=== PATIENT | female | born 2000 | race Two or more races ===

== ENCOUNTER 2023-11-06 16:41 | Emergency (ER) | payer BC, SELFPAY ==
--- NOTE | ~2023-11-06 | XR_ITS ---
EXAMINATION: XR chest 2V DATE: 11/06/2023 18:14 INDICATION: Asthma TECHNIQUE: PA and lateral views of the chest were obtained. COMPARISON: None FINDINGS: The lungs are clear with no focal airspace opacities, pulmonary edema, pleural effusion or pneumothor ax. The cardiomediastinal silhouette is normal. Visualized bones and soft tissues are unremarkable. IMPRESSION: 1. Normal chest radiograph. Reviewed, dictated and finalized at location A. IMPRESSION: 1. Normal chest radiograph.
[2023-11-06 16:48] VITALS: BP 153/81; PULSE 94; RESP 20; TEMP 36; O2SAT 100
--- NOTE | 2023-11-06 16:54 | ECG_ITS ---
SEE SCANNED COPY FOR CONFIRMED REPORT MTDD
--- NOTE | 2023-11-06 16:54 | ED.ASTHMA ---
HPI - Asthma General Chief Complaint: Asthma <Verito Toro PA-C - Last Filed: 11/06/23 17:05> Stated Complaint: Chest tightness, Asthma exacerbation <Verito Toro PA-C - Last Filed: 11/06/23 17:05> Time Seen by Provider: 11/06/23 16:54 <JUSTA Harper Last Filed: 11/06/23 17:05> Focused HPI: Patient is a 22 y/o female who presents to the ED with c/o asthma flare-up. Patient reports since this morning, she has been having increased difficulty breathing, chest tightness, wheezing, she does report mild cough and congestion which she attributes to seasonal allergies. She has been using her inhaler at home with only mild temporary relief. Denies fevers, lower extremity pain or swelling, chest pain. Patient states it has been sometime since her last asthma flare. GENERAL: Well-appearing, obese with 39.7, and in no acute distress. HEAD: Normocephalic, atraumatic. CHEST: Clear to auscultation. Respirations nonlabored, no tachypnea. Tight coarse lung sounds bilaterally. Diffuse expiratory wheezing, worse on right. HEART: Regular rate and rhythm.? NEURO: ?Alert and oriented x3. Patient screened in triage and initial orders placed.? ?Additional care and disposition to be based upon?diagnostic testing and treatment. <Verito Toro PA-C - Last Filed: 11/06/23 17:05> Source: patient <Verito Toro PA-C - Last Filed: 11/06/23 17:05> Mode of arrival: ambulatory <JUSTA Harper Last Filed: 11/06/23 17:05> Limitations: no limitations <JUSTA Harper Last Filed: 11/06/23 17:05> History of Present Illness HPI Narrative: agree with HPI <Alex Alvarenga MD - Last Filed: 11/06/23 19:33> Related Data Allergies/Adverse Reactions: Allergies Allergy/AdvReac Type Severity Reaction Status Date / Time amoxicillin Allergy Unknown Verified 11/06/23 17:06 <Verito Toro PA-C - Last Filed: 11/06/23 17:05> Review of Systems Review of Systems: All systems reviewed & are unremarkable except as noted in HPI and below <Alex Alvarenga MD - Last Filed: 11/06/23 19:33> Constitutional: Constitutional: Reports no additional constitutional complaints <Alex Alvarenga MD - Last Filed: 11/06/23 19:33> Cardiovascular: Cardiovascular: Reports no additional cardiovascular complaints <Alex Alvarenga MD - Last Filed: 11/06/23 19:33> Respiratory: Respiratory: Reports cough, Reports dyspnea and Reports wheezing <Alex Alvarenga MD - Last Filed: 11/06/23 19:33> Gastrointestinal: Gastrointestinal: Reports no additional gastrointestinal complaints <Alex Alvarenga MD - Last Filed: 11/06/23 19:33> PMFSH Past Medical History Medical History: Medical History (Updated 11/06/23 @ 19:30 by Alex Alvarenga MD) Asthma <Verito Toro PA-C - Last Filed: 11/06/23 17:05> Surgical History Surgical History: Surgical History (Updated 11/06/23 @ 18:09 by Alex Alvarenga MD) No pertinent past surgical history <Verito Toro PA-C - Last Filed: 11/06/23 17:05> Exam Narrative: GENERAL: Well-appearing, morbidly obese, and in no acute distress. HEAD: Normocephalic, atraumatic. ENT: Mucous membranes moist. CHEST: mild expiratory wheezing. No respiratory distress. HEART: Regular rate and rhythm. Normal peripheral pulses. EXTREMITIES: Normal range of motion. No edema. SKIN: Warm, dry, no rash. NEURO: Alert and oriented x3. PSYCH: Normal mood and affect. <Alex Alvarenga MD - Last Filed: 11/06/23 19:33> Course Course Emergency Course: Breathing improved after nebulizer treatment. Discharge home with prednisone. Viral panel negative an x-ray normal. <Alex Alvarenga MD - Last Filed: 11/06/23 19:33> Vital Signs Vital signs: Vital Signs Temperature 96.8 F L 11/06/23 16:48 Pulse Rate 94 11/06/23 16:48 Respiratory Rate 20 11/06/23 16:4
[2023-11-06 17:06] VITALS: BP 164/89; PULSE 72; RESP 20; O2SAT 99
[2023-11-06] MEDS: methylPREDNISolone SOD SUCC 125 MG VIAL IM (17:07)
[2023-11-06] MEDS: LEVALBUTEROL NEB 1.25 MG/3 ML 2.5 MG INHALATION (17:08)
[2023-11-06] MEDS: IPRATROPIUM BR 0.02% INH SOLN 0.5 MG/2.5 ML VIAL 1.5 MG INHALATION (17:09)
[2023-11-06 17:55] LABS: Influenza A QL RT-PCR Negative (Negative); Influenza B QL RT-PCR Negative (Negative); RSV RNA, RT-PCR Negative (Negative); SARS-CoV-2 RNA PCR Negative (Negative)
[2023-11-06 18:02] VITALS: BP 169/93; PULSE 83; RESP 19; O2SAT 100
[2023-11-06 19:37] VITALS: PULSE 91; RESP 16; O2SAT 100
== END 2023-11-06 19:39 | disposition home or self-care (01) ==
PROVIDERS: Physician Assistant; Emergency Provider Emergency Medicine
DX: J45.901 Unspecified asthma with (acute) exacerbation (principal); Z20.822 Contact with and (suspected) exposure to COVID-19
CPT/HCPCS: 71046; 87637; 93005; 96372; 99283; J2919

== ENCOUNTER 2024-11-16 15:21 | Outpatient (CLI) | payer BC, SELFPAY ==
--- NOTE | ~2024-11-16 | US_ITS ---
EXAMINATION: US OB <=14 wk fetus w TV DATE: 11/16/2024 16:43 CDT INDICATION: Dating COMPARISON: None TECHNIQUE: Real-time transabdominal obstetric ultrasound. FINDINGS: 1 para 0 Last menstrual period is given as 08/26/2024. Gestational age by last menstrual period is 11 weeks and 5 days. Estimated date of delivery by last menstrual period is 06/02/2025 The uterus measures 10.4 x 5.2 x 7.2 cm. A gestational sac is identified within the uterus. A pole is identified, with a crown-rump length that measures 2.26 cm, corresponding to an appro ximate gestational age of 9 weeks and 0 days. cardiac activity is identified at a rate of 182 bpm. The right ovary 3.5 x 1.6 x 1.8 cm. Despite prolonged interrogation, the left ovary was not visualized. Estimated date of delivery by ultrasound is 06/21/2025 IMPRESSION: Single intrauterine gestation with an approximate gestational age of 9 weeks and 0 days, with c ardiac activity identified. Reviewed, dictated and finalized at location A. IMPRESSION: Single intrauterine gestation with an approximate gestational age of 9 weeks an d 0 days, with cardiac activity identified.
--- OUTSIDE RECORDS SUMMARY | 2024-11-16 15:27 | XMS_ITS | Clinical Summary ---
Author Organization [facility] [place] [address] [place] Address [address] [place] [id number] Care Team Providers Care Epic Director Name Role Phone Cassandra Velázquez NP Primary Care Provider [phone] Allergies Active Allergy Reactions Criticality Noted Date Comments Amoxicillin Hives,Itching,Rash,S hortness of breath High 03/07/2011 Shellfish Derived Hives,Itching,Rash,S hortness of breath,Swelling,Wheezing High 03/19/2022 Medications albuterol HFA (PROVENTIL HFA,VENTOLIN HFA,PROAIR HFA) 90 mcg/actuation inhaler Inhale 2 puffs every 6 (six) hours as needed for wheezing 1 each 3 4 Active EPINEPHrine 0.3 mg/0.3 mL auto-injection syringeIndicat ions:Anaphylax is Inject 0.3 mL (0.3 mg total) into the muscle as instructed daily as needed for anaphylaxis 1 each 4 Active dextroamphetam ine-amphetamin e XR (ADDERALL XR) 20 mg 24 hr capsule Take 1 capsule (20 mg total) by mouth every morning 30 capsule 5 Active dextroamphetam ine-amphetamin e XR (ADDERALL XR) 20 mg 24 hr capsule Take 1 capsule (20 mg total) by mouth every morning 30 capsule 5 10/28/19 25 Discontin ued(Reord er) Active Problems Problem Noted Date Diagnosed Date Class 3 severe obesity due t o excess calories with serious comorbidity and body mass index (BMI) of 40.0 to 44.9 in adult 07/14/2024 Assessment & Plan (07/14/2024 10:37 AM HOME HEALTH NURSE LICENSED PRACTICAL): BMI Follow-up includes: education provided. Annual physical exam 06/16/2024 Assessment & Plan (06/16/2024 3:16 PM HOME HEALTH NURSE LICENSED PRACTICAL): -Recommended: Healthy diet. Avoiding junk food/fast food. -30 minutes of exercise most days of the week. Increase to 45 minutes for weight loss. Health Maintenance reviewed - reviewed vaccines today. I recommended the meningococcal HPV and Tdap.. -Influenza vaccine every year Recommend: - Topic Date Due Pneumococcal vaccine <65 (1 of 2 - PCV) Never done Varicella Vaccines (2 of 2 - 2-dose childhood series) 06/12/2008 DTaP/Tdap/Td Vaccine (4 - Tdap) 2012 HPV Vaccines (1 - 3-dose series) Never done -F/u in 1 year for Annual PE or sooner if needed Major depression 05/19/2024 Assessment & Plan (06/16/2024 3:15 PM HOME HEALTH NURSE LICENSED PRACTICAL): Improved. Does not feel like she needs anything further for depression. Feels like she is doing well enough with the Adderall XR. We will continue to monitor. Follow-up 6 months Assessment & Plan (05/19/2024 2:31 PM HOME HEALTH NURSE LICENSED PRACTICAL): Positive PHQ. We are going to start by retreating the ADHD. I am going to have her follow-up in 1 month to rediscuss the depression anxiety and daily marijuana use. Shellfish allergy 05/19/2024 Assessment & Plan (05/19/2024 2:32 PM HOME HEALTH NURSE LICENSED PRACTICAL): Anaphylactic shellfish allergy. Prescription for epinephrine pen Asthma 11/11/2023 Assessment & Plan (05/19/2024 2:32 PM HOME HEALTH NURSE LICENSED PRACTICAL): Seasonal. Unsure how well controlled this is. She is using her albuterol inhaler periodically. 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 Continue Adderall XR 20 mg once daily. Call for refills. May follow up in 6 months Assessment & Plan (05/19/2024 2:30 PM HOME HEALTH NURSE LICENSED PRACTICAL): Previously diagnosed. Will restart Adderall XR 20 mg once daily. Will have her follow-up in 1 month for recheck Developmental disability 08/10/2009 Immunizations Immunization Administration Dates Next Due DTaP 01/15/2006,06/17/2002,02/25/2002 Hep A, Pediatric 12/17/2011 Hep B, Adolescent or Pediatric 09/14/2002 Hib (PRP-T) 06/17/2002 IPV 01/15/2006,02/25/2002 Influenza, Split 03/20/2008,06/24/2005, 4 MMR 01/15/2006 Pfizer SARS-CoV-2 Monovalent Vaccination (12+ Yrs) PRIETO-READY TO USE 10/06/2021 Varicella 03/20/2008 Surgical History Surgery Date Site/Laterality Comments WISDOM TOOTH EXTRACTION TYMPANOSTOMY TUBE PLACEMENT Medical History Medical History Date Comments ADHD (attention deficit hyperactivity disorder) Family History Medical History Relation Name Comments Thyroid disease Mother Relation Name Status Comments Mother Alive Social History Tobacco Use Types Packs/Day Years Used Date Smoking Tobacco: Every Day Vaping Started: 2020 AUDIT-C Answer Date Recorded Q1: How often do you have a drink containing alc ohol? 2-4 times a month 05/19/2024 Q2: How many drinks containi ng alcohol do you have on a typical day when you are drinking? 1 or 2 05/19/2024 Q3: How often do you have si x or more drinks on one occasion? Never 05/19/2024 PHQ-2 Answer Date Recorded PHQ-2 Total Score (If total score is 3 or more points, staff should administer the PHQ-9) 1 06/16/2024 PHQ-9 Answer Date Recorded PHQ-9 Total Score 3 06/16/2024 Comments Unknown Sex and Gender Information Value Date Recorded Sex Assigned at Not on file Legal Sex Female 11:24 PM HOME HEALTH NURSE LICENSED PRACTICAL Gender Identity Not on file Sexual Orientation Not on file Obstetrics History Last Filed Vital Signs Vital Sign Reading Time Taken Comments Blood Pressure 136/86 06/16/2024 2:33 PM HOME HEALTH NURSE LICENSED PRACTICAL Pulse 80 06/16/2024 2:33 PM HOME HEALTH NURSE LICENSED PRACTICAL Temperature 36.8 C (98.2 F) 06/16/2024 2:33 PM HOME HEALTH NURSE LICENSED PRACTICAL Respiratory Rate 18 06/16/2024 2:33 PM HOME HEALTH NURSE LICENSED PRACTICAL Oxygen Saturation 99% 06/16/2024 2:33 PM HOME HEALTH NURSE LICENSED PRACTICAL Inhaled Oxygen Concentration - - Weight 141.3 kg (311 lb 6.4 oz) 06/16/2024 2:33 PM HOME HEALTH NURSE LICENSED PRACTICAL Height 177.8 cm (5' 10 ) 06/16/2024 2:33 PM HOME HEALTH NURSE LICENSED PRACTICAL Body Mass Index 44.68 06/16/2024 2:33 PM HOME HEALTH NURSE LICENSED PRACTICAL Plan of Treatment Health Maintenance Due Date Last Done Comments Cervical Cancer Screening 2001 Hepatitis C Screening 2001 Varicella Vaccines (2 of 2 - 2-dose childhood series) 06/12/2008 03/20/2008 DTaP/Tdap/Td Vaccine (4 - Tdap) 2012 01/15/2006, 06/17/2002, 02/25/2002 HPV Vaccines (1 - 3-dose series) 2016 Meningococcal B Vaccine (1 o f 2 - Standard) 2017 Pneumococcal vaccine <65 (1 of 2 - PCV) 2020 Covid-19 Vaccine (2 - season) 02/28/202403/2022 Influenza Vaccine (Season Ended) 2025 03/20/2008, 06/24/2005, 05/30/2004 Depression Screening 06/16/2025 06/16/2024, 05/19/2024, 05/19/2024 Regular Well Visit/Exam 18-64 06/16/2025 06/16/2024 Hepatitis B Screening Completed 09/14/2002 Insurance [facility] Care Teams Epic Director Relationship Specialty Start Date End Date Cassandra Velázquez NP PCP - General Family Medicine 05/19/24
--- OUTSIDE RECORDS SUMMARY | 2024-11-16 15:27 | XMS_ITS | Encounter Summary ---
Author Organization [facility] Address [address] [place] [address] Care Team Providers Care Dairy Inspector Name Role Phone Unavailable Primary Care Provider Unavailabl e Prior Encounters Date Type Department Care Team Description 08/04/2024 11:00 AM FACILITIES OFFICER Office Visit [facility] [address] [place] [address] Neida Zhang, Junito 06/03/2024 12:45 PM FACILITIES OFFICER Office Visit [facility] [address] [place] [address] Arlen Sanchez DDS Unsatisfactory mu-ism of tooth, unspecified (Primary Dx); Encounter for dental examination and cleaning without abnormal findings 11/11/2023 9:00 AM CDT Office Visit [facility] [address] [place] [address] Radha Jones DDS 11/05/2023 Orders Only [facility] [address] [place] [address] Molly Bentley DMD 10/14/2023 1:00 PM CDT Office Visit [facility] [address] [place] [address] Radha Jones DDS 08/13/2023 2:15 PM FACILITIES OFFICER Office Visit [facility] [address] [place] [address] Molly Bentley DMD Encounter for dental examination and cleaning without abnormal findings (Primary Dx) 02/03/2023 Travel 02/03/2023 2:00 PM CDT Office Visit [facility] [address] [place] [address] Molly Bentley, DMD 10/08/2022 Travel 10/08/2022 2:00 PM CDT Office Visit [facility] [address] [place] [address] Molly Bentley, DMD 09/03/2022 2:45 PM FACILITIES OFFICER Office Visit [facility] [address] [place] [address] Molly Bentley, DMD 08/05/2022 2:30 PM FACILITIES OFFICER Office Visit [facility] [address] [place] [address] Molly Bentley, DMD 07/08/2022 3:15 PM FACILITIES OFFICER Office Visit [facility] [address] [place] [address] Molly Bentley, DMD 04/28/2022 1:15 PM CDT Office Visit [facility] [address] [place] [address] Molly Bentley, DMD 04/09/2022 10:00 AM CDT Office Visit [facility] [address] [place] [address] Cj Monzon DDS 03/19/2022 10:00 AM CDT Office Visit [facility] [address] [place] [address] Molly Bentley, DMD Last Filed Vital Signs Vital Sign Reading Time Taken Comments Blood Pressure 147/77 11/11/2023 9:38 AM CDT Pulse 72 11/11/2023 9:38 AM CDT Temperature - - Respiratory Rate - - Oxygen Saturation - - Inhaled Oxygen Concentration - - Weight 129 kg (285 lb) 11/11/2023 9:38 AM CDT Height 177.8 cm (5' 10 ) 11/11/2023 9:38 AM CDT Body Mass Index 40.89 11/11/2023 9:38 AM CDT Plan of Treatment Upcoming Encounters Date Type Department Care Team (Late st Contact Info) Description 02/02/2025 1:15 PM CDT Office Visit [facility] [address] [address] [place] [address] [address] Procedures Procedure Name Priority Date/Time Associated Diagnosis Comments ORAL HYGIENE INSTRUCTIONS Routine 2024 11:00 AM FACILITIES OFFICER TOPICAL APPLICATION OF FLUORIDE VARNISH Routine 08/04/2024 11:00 AM FACILITIES OFFICER ANNE-MARIE DECON Routine 08/04/2024 11:00 AM FACILITIES OFFICER SCALING IN PRESENCE OF GENERALIZED MODERATE OR SEVERE GINGIVAL INFLAMMATION Routine 08/04/2024 11:00 AM FACILITIES OFFICER LR ANTIBACT IRR/QUAD Routine 08/04/2024 11:00 AM FACILITIES OFFICER LL ANTIBACT IRR/QUAD Routine 08/04/2024 11:00 AM FACILITIES OFFICER UL ANTIBACT IRR/QUAD Routine 08/04/2024 11:00 AM FACILITIES OFFICER UR ANTIBACT IRR/QUAD Routine 08/04/2024 11:00 AM FACILITIES OFFICER BITEWINGS - FOUR RADIOGRAPHIC IMAGES Routine 06/03/2024 12:45 PM FACILITIES OFFICER PERIODIC ORAL EVALUATION - ESTABLISHED PATIENT Routine 06/03/2024 12:45 PM FACILITIES OFFICER Encounter for dental examination and cleaning without abnormal findings THERAPEUTIC PARENTERAL DRUGS, TWO OR MORE ADMINISTRATIONS, DIFFERENT MEDICATIONS Routine 11/11/2023 9:00 AM CDT DEEP SEDATION/GENERAL ANESTHESIA EACH SUBSEQUENT 15 MINUTE INCREMENT Routine 11/11/2023 9:00 AM CDT DEEP SEDATION/GENERAL ANESTHESIA EACH SUBSEQUENT 15 MINUTE INCREMENT Routine 11/11/2023 9:00 AM CDT DEEP SEDATION/GENERAL ANESTHESIA EACH SUBSEQUENT 15 MINUTE INCREMENT Routine 11/11/2023 9:00 AM CDT DEEP SEDATION/GENERAL ANESTHESIA FIRST 15 MINUTES Routine 11/11/2023 9:00 AM CDT 17 REMOVAL OF IMPACTED TOOTH - COMPLETELY BONY Routine 11/11/2023 9:00 AM CDT 16 REMOVAL OF IMPACTED TOOTH - COMPLETELY BONY Routine 11/11/2023 9:00 AM CDT 1 EXTRACTION, ERUPTED TOOTH REQUIRING REMOVAL OF BONE AND/OR SECTIONING OF TOOTH Routine 11/11/2023 9:00 AM CDT 32 REMOVAL OF IMPACTED TOOTH - COMPLETELY BONY Routine 11/11/2023 9:00 AM CDT 32 PLACEMENT OF INTRA-SOCKET BIOLOGICAL DRESSING TO AID IN HEMOSTASIS OR CLOT STABILIZATION, PER SITE Routine 11/11/2023 9:00 AM CDT 17 PLACEMENT OF INTRA-SOCKET BIOLOGICAL DRESSING TO AID IN HEMOSTASIS OR CLOT STABILIZATION, PER SITE Routine 11/11/2023 9:00 AM CDT 16 PLACEMENT OF INTRA-SOCKET BIOLOGICAL DRESSING TO AID IN HEMOSTASIS OR CLOT STABILIZATION, PER SITE Routine 11/11/2023 9:00 AM CDT 1 PLACEMENT OF INTRA-SOCKET BIOLOGICAL DRESSING TO AID IN HEMOSTASIS OR CLOT STABILIZATION, PER SITE Routine 11/11/2023 9:00 AM CDT ORAL SURG CONSULT Routine 10/14/2023 1:0 0 PM CDT PROPHYLAXIS - ADULT Routine 08/13/2023 2 :15 PM FACILITIES OFFICER Encounter for dental examination and cleaning without abnormal findings PERIODIC ORAL EVALUATION - ESTABLISHED PATIENT Routine 08/13/2023 2:15 PM FACILITIES OFFICER Encounter for dental examination and cleaning without abnormal findings BITEWINGS - FOUR RADIOGRAPHIC IMAGES Routine 08/13/2023 2:15 PM FACILITIES OFFICER PROPHYLAXIS - ADULT Routine 02/03/2023 2 :00 PM CDT BITEWINGS - FOUR RADIOGRAPHIC IMAGES Routine 02/03/2023 2:00 PM CDT SINGLE X-RAY Routine 02/03/2023 2:00 PM CDT PERIODIC ORAL EVALUATION - ESTABLISHED PATIENT Routine 02/03/2023 2:00 PM CDT 12 DO RESIN-BASED COMPOSITE - TWO SURFACES, POSTERIOR Routine 10/08/2022 2:00 PM CDT 13 MOD RESIN-BASED COMPOSITE - THREE SURFACES, POSTERIOR Routine 10/08/2022 2:00 PM CDT 4 MOD RESIN-BASED COMPOSITE - THREE SURFACES, POSTERIOR Routine 10/08/2022 2:00 PM CDT 15 O RESIN-BASED COMPOSITE - ONE SURFACE, POSTERIOR Routine 10/08/2022 2:00 PM CDT 31 O RESIN-BASED COMPOSITE - ONE SURFACE, POSTERIOR Routine 09/03/2022 2:45 PM FACILITIES OFFICER 29 DO RESIN-BASED COMPOSITE - TWO SURFACES, POSTERIOR Routine 09/03/2022 2:45 PM FACILITIES OFFICER 20 DO RESIN-BASED COMPOSITE - TWO SURFACES, POSTERIOR Routine 09/03/2022 2:45 PM FACILITIES OFFICER 18 MO RESIN-BASED COMPOSITE - TWO SURFACES, POSTERIOR Routine 09/03/2022 2:45 PM FACILITIES OFFICER 30 MOD RESIN-BASED COMPOSITE - THREE SURFACES, POSTERIOR Routine 09/03/2022 2:45 PM FACILITIES OFFICER ORAL HYGIENE INSTRUCTIONS Routine 2022 2:30 PM FACILITIES OFFICER PROPHYLAXIS - ADULT Routine 08/05/2022 2 :30 PM FACILITIES OFFICER INTRAORAL PHOTO Routine 08/05/2022 2:30 PM FACILITIES OFFICER INTRAORAL PHOTO Routine 08/05/2022 2:30 PM FACILITIES OFFICER INTRAORAL PHOTO Routine 08/05/2022 2:30 PM FACILITIES OFFICER INTRAORAL PHOTO Routine 08/05/2022 2:30 PM FACILITIES OFFICER PANORAMIC RADIOGRAPHIC IMAGE Routine 08/05/2022 2:30 PM FACILITIES OFFICER INTRAORAL - COMPREHENSIVE SERIES OF RADIOGRAPHIC IMAGES Routine 08/05/2022 2:30 PM FACILITIES OFFICER COMPREHENSIVE ORAL EVALUATION - NEW OR ESTABLISHED PATIENT Routine 08/05/2022 2:30 PM FACILITIES OFFICER LIMITED ORAL EVALUATION - PROBLEM FOCUSED Routine 07/08/2022 3:15 PM FACILITIES OFFICER SINGLE X-RAY Routine 07/08/2022 3:15 PM FACILITIES OFFICER 19 CEMENT CROWN Routine 04/28/2022 1:15 PM CDT 19 CEREC CROWN POST Routine 04/28/2022 1 :15 PM CDT NC X-RAY Routine 04/28/2022 1:15 PM CDT 19 TREATMENT OF ROOT CANAL OBSTRUCTION; NON-SURGICAL ACCESS Routine 04/09/2022 10:00 AM CDT NC X-RAY Routine 04/09/2022 10:00 AM CDT 19 CORE BUILDUP, INCLUDING ANY PINS WHEN REQUIRED Routine 04/09/2022 10:00 AM CDT 19 PULP VITALITY TESTS Routine 10:00 AM CDT [facility] CONSULT Routine 04/09/2022 1 0:00 AM CDT 19 ENDODONTIC THERAPY, MOLAR TOOTH (EXCLUDING FINAL NONDENOMINATIONAL) Routine 04/09/2022 10:00 AM CDT PANORAMIC RADIOGRAPHIC IMAGE Routine 03/19/2022 10:00 AM CDT BITEWING - SINGLE RADIOGRAPHIC IMAGE Routine 03/19/2022 10:00 AM CDT ADDITIONAL X-RAY Routine 03/19/2022 10:0 0 AM CDT SINGLE X-RAY Routine 03/19/2022 10:00 AM CDT LIMITED ORAL EVALUATION - PROBLEM FOCUSED Routine 03/19/2022 10:00 AM CDT Visit Diagnoses Diagnosis Start Date Encounter for dental examination and cleaning without abnormal findings 08/13/2023 Unsatisfactory mu-ism of tooth, unspecified 06/03/2024 Encounter for dental examination and cleaning without abnormal findings 06/03/2024 Insurance [facility]
--- OUTSIDE RECORDS SUMMARY | 2024-11-16 15:27 | XMS_ITS | Clinical Summary ---
Author Organization [facility] Address [address] [place] [address] Care Team Providers Care Interactive Project Manager Name Role Phone Willie Baldwin Primary Care Provider Ricky perales Source Comments [facility],non-owned Affiliates and Associated Physician Practices is amultiple site organization consisting of ambulatory clinics and hospital sitesin [place], [place], [place] and [place]. This disclosure is being madepursuant to the Care Everywhere program and may not contain all information available regarding this patient. Last updated 18.[facility] Allergies Active Allergy Reactions Criticality Noted Date Comments Amoxicillin 03/07/2011 Medications * Be aware that medications may not be up to date on this document. Alwaysverify current medications with the patient. sertraline (ZOLOFT) 50 MG tablet Take 50 mg by mouth at bedtime. Active fluticasone diskus (FLOVENT DISKUS) 100 MCG/BLIST inhaler Inhale 1 Puff by mouth 2 times daily. Rinse mouth after use. Active albuterol (PROVENTIL; VENTOLIN) 90 MCG/ACT inhaler Inhale 2 Puffs by mouth every 6 hours as needed. Active EPINEPHrine (EPIPEN 2-DEBRA) 0.3 MG/0.3ML auto-injector Inject 0.3 mL into muscle once as needed for Anaphalaxysis for 1 dose. 1 Package 2 1 Active methylphenidat e 24hr (RITALIN LA) 20 MG capsule Take 20 mg by mouth every morning. Active methylphenidat e (RITALIN) 10 MG tablet Take 10 mg by mouth Every morning and lunchtime. Active albuterol HFA (PROVENTIL;BINTA TOLIN;PROAIR) 108 (90 BASE) MCG/ACT inhaler Inhale 4 Puffs by mouth every 6 hours as needed. 1 Inhaler 5 4 Active ibuprofen (MOTRIN) 800 MG tablet Take 1 Tab by mouth every 6 hours as needed for Pain 30 Tab 0 6 Active Active Problems Problem Noted Date Diagnosed Date Injury, other and unspecified, knee, leg, ankle, and foot 10/18/2011 Social History Tobacco Use Types Packs/Day Years Used Date Smoking Tobacco: Never Smokeless Tobacco: Never Alcohol Use Standard Drinks/Week Comments No 0 (1 standard drink = 0.6 oz pur e alcohol) Comments Unknown Sex and Gender Information Value Date Recorded Sex Assigned at Not on file Legal Sex Female 5:26 AM VIBRATOR EQUIPMENT TESTER Gender Identity Not on file Sexual Orientation Not on file Last Filed Vital Signs Vital Sign Reading Time Taken Comments Blood Pressure 102/80 03/25/2016 7:43 PM CDT Pulse 80 03/25/2016 7:43 PM CDT Temperature 36.6 C (97.8 F) 03/25/2016 7:43 PM CDT Respiratory Rate 16 03/25/2016 7:43 PM CDT Oxygen Saturation 98% 02/28/2014 12: 20 AM CDT Inhaled Oxygen Concentration - - Weight 100.9 kg (222 lb 7.1 oz) 03/25/2016 7:43 PM CDT Height 168.8 cm (5' 6.44 ) 01/30/2016 1 0:00 AM CDT Body Mass Index - - Plan of Treatment Health Maintenance Due Date Last Done Comments HIV SCREENING 2016 HPV VACCINE (1 - 3-dose series) 2016 CHLAMYDIA/GONORRHEA SCREENING 2017 MENINGOCOCCAL (Group B) VACC INE SHARED DECISION-MAKING (1 of 2 - Standard) 2017 HEPATITIS C SCREENING 12/05/2019 DTAP/TDAP/TD VACCINES (1 - Tdap) 2020 HEPATITIS B VACCINE (1 of 3 - 19+ 3-dose series) 2020 COVID-19 VACCINE (1 - 2023-2 5 season) 2024 DEPRESSION SCREENING 06/29/2024 INFLUENZA VACCINE (Season Ended) 2025 ZOSTER VACCINE (1 of 2) 12/10/2051 HIB VACCINE Aged Out No longer eligi ble based on patient's age to complete this topic MENINGOCOCCAL GROUPS A/C/Y/W VACCINE Aged Out No longer eligible b ased on patient's age to complete this topic PNEUMOCOCCAL VACCINE Aged Out No long er eligible based on patient's age to complete this topic Insurance [employer] Care Teams Interactive Project Manager Relationship Specialty Start Date End Date Willie Baldwin PCP - General Pediatrics 02/27/14
--- OUTSIDE RECORDS SUMMARY | 2024-11-16 15:27 | XMS_ITS | Patient Health Record ---
Author Organization [facility] Address [address] [place] [address] Care Team Providers Care Underground Supervisor Name Role Phone Cely Diaz Primary Care Provider [phone] Allergies Allergen (clinical drug ingredient) Drug/Non Drug Allergy documented on EMR Reaction Allergy Type Onset Date Status shellfish and peanut s (uncoded) Unknown Allergy Active amoxicillin Amoxicillin Unknown Drug Allergy Act melody Reason For Referral No Information Medications Medication SIG (Take, Route, Frequency, Duration) Notes Start Date End Date Status Zoloft 50 MG 1 tablet Orally half tab for one week then increase to full tab for 30 days Active Social History Tobacco Use: Social History Observation Description Date Details (start date - stop date) Never Smoker NA - NA Dont use, Tobacco Use/Smoking Question Answer Notes Are you a nonsmoker Problems Problem Type SNOMED Code ICD Code Onset Dates Problem Status W/U Status Risk Notes Problem 603538161 Obesity (E66.9) Active confirmed Problem [id number] Major depression (F32.9) Active confirmed Plan Of Treatment No Information Insurance Providers Payer Name Payer Address Payer Phone Subscriber Number Group Number Insured Name Patient Relationship to Insured Coverage Start Date Coverage End Date [address] PLAN [facility] [address] [address] [place] [address] [id number] Sarah Solitario Self - patient is the insured 6 Medical (General) History Medical History History ICD Code ADHD (attention deficit hyperactivity di sorder)
--- OUTSIDE RECORDS SUMMARY | 2024-11-16 15:27 | XMS_ITS | Clinical Summary ---
Author Organization [facility] Address [address] [place] [address] Care Team Providers Care Dye Stand Loader Name Role Phone Unavailable Primary Care Provider Unavailabl e Allergies Active Allergy Reactions Criticality Noted Date Comments Amoxicillin Hives,Itching,Rash,S hortness of breath High 03/19/2022 Shellfish Derived Hives,Itching,Rash,S hortness of breath,Swelling,Wheezing High 03/19/2022 Medications albuterol HFA (PROVENTIL HFA;VENTOLIN HFA) 90 mcg/actuation inhaler Inhale 2 puffs every 6 (six) hours if needed. Active ibuprofen (ADVIL,MOTRIN) 600 mg tablet Take 1 tablet (600 mg total) by mouth every 6 (six) hours if needed for mild pain or moderate pain. 20 tablet Active chlorhexidine (PERIDEX) 0.12 % solution Use 15 mL in the mouth or throat in the morning and 15 mL in the evening. Swish and spit with 15 mL twice daily after brushing (do not use for more than two consecutive weeks). 473 mL 4 Active Active Problems Problem Noted Date Diagnosed Date Asthma 11/11/2023 Social History Tobacco Use Types Packs/Day Years Used Date Smoking Tobacco: Never Assessed Comments Unknown Sex and Gender Information Value Date Recorded Sex Assigned at Not on file Legal Sex Female 6:00 AM PDT Gender Identity Not on file Sexual Orientation [...] Description 02/02/2025 1:15 PM CDT Office Visit [facility] [address] [place] [address] Arlen Sanchez, DDS [address] [place] [address] Health Maintenance Due Date Last Done Comments Meningococcal B Vaccine (1 o f 2 - Standard) 2017 Dental Prophylaxis 02/12/2024 08/13/2023, 0 02/03/2023, 08/05/2022 Dental Oral Exam 12/03/2024 06/03/2024, , 02/03/2023, Additional history exists Dental X-Ray: Bitewings 12/03/2024 06/03/2024 Dental X-Ray: Full Mouth 08/07/2025 08/06/2022, 02/0 12/2022 Dental X-Ray: Panoramic 10/15/2026 10/15/19 24, 08/05/2022, 03/19/2022 Procedures Procedure Name Priority Date/Time Associated Diagnosis Comments PERIODIC ORAL EVALUATION - ESTABLISHED PATIENT Routine 06/03/2024 12:45 PM NUMERICAL CONTROL ROUTER OPERATOR Encounter for dental examination and cleaning without abnormal findings PROPHYLAXIS - ADULT Routine 08/13/2023 2 :15 PM NUMERICAL CONTROL ROUTER OPERATOR Encounter for dental examination and cleaning without abnormal findings PANORAMIC RADIOGRAPHIC IMAGE Routine 08/05/2022 2:30 PM NUMERICAL CONTROL ROUTER OPERATOR INTRAORAL - COMPREHENSIVE SERIES OF RADIOGRAPHIC IMAGES Routine 08/05/2022 2:30 PM NUMERICAL CONTROL ROUTER OPERATOR from Last 3 Months or Most Recently Relevant to Health Maintenance Insurance [facility] PPO [facility] COMMERCIAL
--- OUTSIDE RECORDS SUMMARY | 2024-11-16 15:27 | XMS_ITS | Referral Summary ---
Author Organization [facility] [address] Address [address] [place] [id number] Care Team Providers Care Bottle Packer Name Role Phone Cassandra Velázquez NP Primary Care Provider [phone] Allergies Active Allergy Reactions Criticality Noted Date [...] 07/14/2024 Assessment & Plan (07/14/2024 10:37 AM PADDER): BMI Follow-up includes: education provided. Annual physical exam 06/16/2024 Assessment & Plan (06/16/2024 3:16 PM PADDER): -Recommended: Healthy diet. Avoiding junk food/fast food. [...] 05/19/2024 Assessment & Plan (06/16/2024 3:15 PM PADDER): Improved. Does not feel like she needs anything further for depression. Feels like she is doing well enough with the Adderall XR. We will continue to monitor. Follow-up 6 months Assessment & Plan (05/19/2024 2:31 PM PADDER): Positive PHQ. We are going to start by retreating the ADHD. I am going to have her follow-up in 1 month to rediscuss the depression anxiety and daily marijuana use. Shellfish allergy 05/19/2024 Assessment & Plan (05/19/2024 2:32 PM PADDER): Anaphylactic shellfish allergy. Prescription for epinephrine pen Asthma 11/11/2023 Assessment & Plan (05/19/2024 2:32 PM PADDER): Seasonal. Unsure how well controlled this is. She is using her albuterol inhaler periodically. 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 Continue Adderall XR 20 mg once daily. Call for refills. May follow up in 6 months Assessment & Plan (05/19/2024 2:30 PM PADDER): Previously diagnosed. Will restart Adderall XR 20 mg once daily. Will have her follow-up in 1 month for recheck Developmental disability 08/10/2009 Immunizations Immunization Administration Dates Next Due DTaP 01/15/2006,06/17/2002,02/25/2002 Hep A, Pediatric 12/17/2011 Hep B, Adolescent or Pediatric 09/14/2002 Hib (PRP-T) 06/17/2002 IPV 01/15/2006,02/25/2002 Influenza, Split 03/20/2008,06/24/2005, 4 MMR 01/15/2006 [employer] SARS-CoV-2 Monovalent Vaccination (12+ Yrs) PRIETO-READY TO USE 10/06/2021 Varicella 03/20/2008 Social History Tobacco Use Types Packs/Day Years [...] on file Legal Sex Female 11:24 PM PADDER Gender Identity Not on file Sexual Orientation Not on file Last Filed Vital Signs Vital Sign Reading Time Taken Comments Blood Pressure 136/86 06/16/2024 2:33 PM PADDER Pulse 80 06/16/2024 2:33 PM PADDER Temperature 36.8 C (98.2 F) 06/16/2024 2:33 PM PADDER Respiratory Rate 18 06/16/2024 2:33 PM PADDER Oxygen Saturation 99% 06/16/2024 2:33 PM PADDER Inhaled Oxygen Concentration - - Weight 141.3 kg (311 lb 6.4 oz) 06/16/2024 2:33 PM PADDER Height 177.8 cm (5' 10 ) 06/16/2024 2:33 PM PADDER Body Mass Index 44.68 06/16/2024 2:33 PM PADDER Plan of Treatment Not on file Insurance [facility] Care Teams Bottle Packer Relationship Specialty Start Date End Date Cassandra Velázquez NP PCP - General Family Medicine 05/19/24
== END 2024-11-16 15:22 | disposition home or self-care (01) ==
PROVIDERS: PCP Nurse Practitioner Family; Visit Provider Student in an Organized Health Care Education/Training Program
DX: Z34.91 Encounter for supervision of normal pregnancy, unspecified, first trimester (principal); Z3A.09 9 weeks gestation of pregnancy
CPT/HCPCS: 76801; 76817

== ENCOUNTER 2024-11-22 12:58 | Outpatient (CLI) | payer BC, SELFPAY ==
--- OUTSIDE RECORDS SUMMARY | 2024-11-22 13:03 | XMS_ITS | Clinical Summary ---
Author Organization [facility] Address [address] [place] [address] Care Team Providers Care Funds Transfer Clerk Name Role Phone Unavailable Primary Care Provider [...] 9:38 AM CDT Height 177.8 cm (5' 10) 11/11/2023 9:38 AM CDT Body Mass Index 40.89 11/11/2023 9:38 AM CDT Plan of Treatment Upcoming Encounters Date Type Department Care Team (Late st Contact Info) Description 02/02/2025 1:15 PM CDT Office Visit [facility] [address] [place] [address] Arlen Sanchez, DDS [address] [place] [address] Health Maintenance Due Date Last Done Comments [...] - ESTABLISHED PATIENT Routine 06/03/2024 12:45 PM INDUSTRIAL ILLUMINATING ENGINEER Encounter for dental examination and cleaning without abnormal findings PROPHYLAXIS - ADULT Routine 08/13/2023 2 :15 PM INDUSTRIAL ILLUMINATING ENGINEER Encounter for dental examination and cleaning without abnormal findings PANORAMIC RADIOGRAPHIC IMAGE Routine 08/05/2022 2:30 PM INDUSTRIAL ILLUMINATING ENGINEER INTRAORAL - COMPREHENSIVE SERIES OF RADIOGRAPHIC IMAGES Routine 08/05/2022 2:30 PM INDUSTRIAL ILLUMINATING ENGINEER from Last 3 Months or Most Recently Relevant to Health Maintenance Insurance [facility] PPO [facility] AND [facility] COMMERCIAL
--- OUTSIDE RECORDS SUMMARY | 2024-11-22 13:03 | XMS_ITS | Encounter Summary ---
Author Organization [facility] Address [address] [place] [address] Care Team Providers Care Basting Cleaner Name Role Phone Cassandra Velázquez NP Primary Care Provider Reason for Referral * Diagnostic Imaging (Routine) - Closed Specialty Diagnoses / Procedures Referred By Cain rodriguez Referred To Contact Procedures US Ob Limited Kat Armas MD [address] [place] [address] Phone: tel: [facility] Medical Group Referral ID Status Reason Start Date Expiration Date Visits Re quested Visits Authorized [id number] Closed 11/18/2024 12/18/2025 1 1 Encounter Details Date Type Department Care Team (Late st Contact Info) Description 11/18/2024 Orders Only [facility] Medical [facility] Primary Care at [address] [address] Kat Armas MD [address] [place] [address] Social History Tobacco Use Types Packs/Day Years [...] on file Legal Sex Female 11:24 PM USER SUPPORT ANALYST SUPERVISOR Gender Identity Not on file Sexual Orientation Not on file documented as of this encounter Plan of Treatment Not on file documented as of this encounter Procedures Procedure Name Priority Date/Time Associated Diagnosis Comments US OB LIMITED Schedule Routine, Read Routine (OP Routine) 11/16/2024 7:41 AM CDT documented in this encounter Results * US Ob Limited (11/16/2024 7:41 AM CDT) Anatomical Region Laterality Modality Abdomen N/A Ultrasound us Historical Provider MD [facility] OB US PROCEDURES Julianna l Result documented in this encounter Visit Diagnoses Not on filedocumented in this encounter Care Teams Basting Cleaner Relationship Specialty Start Date End Date Cassandra Velázquez NP PCP - General Family Medicine 05/19/24 documented as of this encounter
--- OUTSIDE RECORDS SUMMARY | 2024-11-22 13:03 | XMS_ITS | Referral Summary ---
Author Organization [facility] [address] [address] Care Team Providers Care Production Planner Scheduler Name Role Phone Cassandra Velázquez NP Primary Care Provider Encounters Date Type Department Care Team Description 11/18/2024 Orders Only [facility] Primary Care at [address] [address] Provider, MD Kat from Last 3 Months Allergies Active Allergy Reactions Criticality Noted Date [...] 07/14/2024 Assessment & Plan (07/14/2024 10:37 AM PROCUREMENT SERVICES MANAGER): BMI Follow-up includes: education provided. Annual physical exam 06/16/2024 Assessment & Plan (06/16/2024 3:16 PM PROCUREMENT SERVICES MANAGER): -Recommended: Healthy diet. Avoiding junk food/fast food. [...] 05/19/2024 Assessment & Plan (06/16/2024 3:15 PM PROCUREMENT SERVICES MANAGER): Improved. Does not feel like she needs anything further for depression. Feels like she is doing well enough with the Adderall XR. We will continue to monitor. Follow-up 6 months Assessment & Plan (05/19/2024 2:31 PM PROCUREMENT SERVICES MANAGER): Positive PHQ. We are going to start by retreating the ADHD. I am going to have her follow-up in 1 month to rediscuss the depression anxiety and daily marijuana use. Shellfish allergy 05/19/2024 Assessment & Plan (05/19/2024 2:32 PM PROCUREMENT SERVICES MANAGER): Anaphylactic shellfish allergy. Prescription for epinephrine pen Asthma 11/11/2023 Assessment & Plan (05/19/2024 2:32 PM PROCUREMENT SERVICES MANAGER): Seasonal. Unsure how well controlled this is. She is using her albuterol inhaler periodically. 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 Continue Adderall XR 20 mg once daily. Call for refills. May follow up in 6 months Assessment & Plan (05/19/2024 2:30 PM PROCUREMENT SERVICES MANAGER): Previously diagnosed. Will restart Adderall XR 20 [...] on file Legal Sex Female 11:24 PM PROCUREMENT SERVICES MANAGER Gender Identity Not on file Sexual Orientation Not on file Last Filed Vital Signs Vital Sign Reading Time Taken Comments Blood Pressure 136/86 06/16/2024 2:33 PM PROCUREMENT SERVICES MANAGER Pulse 80 06/16/2024 2:33 PM PROCUREMENT SERVICES MANAGER Temperature 36.8 C (98.2 F) 06/16/2024 2:33 PM PROCUREMENT SERVICES MANAGER Respiratory Rate 18 06/16/2024 2:33 PM PROCUREMENT SERVICES MANAGER Oxygen Saturation 99% 06/16/2024 2:33 PM PROCUREMENT SERVICES MANAGER Inhaled Oxygen Concentration - - Weight 141.3 kg (311 lb 6.4 oz) 06/16/2024 2:33 PM PROCUREMENT SERVICES MANAGER Height 177.8 cm (5' 10) 06/16/2024 2:33 PM PROCUREMENT SERVICES MANAGER Body Mass Index 44.68 06/16/2024 2:33 PM PROCUREMENT SERVICES MANAGER Plan of Treatment Not on file Procedures Procedure Name Priority Date/Time Associated Diagnosis Comments US OB LIMITED Schedule Routine, Read Routine (OP Routine) 11/16/2024 7:41 AM CDT from Last 3 Months Results * US Ob Limited (11/16/2024 7:41 AM CDT) Anatomical Region Laterality Modality Abdomen N/A Ultrasound us Historical Provider IMMel[facility] OB US PROCEDURES Julianna l Result from Last 3 Months Insurance [facility] Care Teams Production Planner Scheduler Relationship Specialty Start Date End Date Cassandra Velázquez NP PCP - General Family Medicine 05/19/24
--- OUTSIDE RECORDS SUMMARY | 2024-11-22 13:03 | XMS_ITS | Encounter Summary ---
Author Organization [facility] Address [address] [place] [address] Care Team Providers Care Cook Helper Dessert Name Role Phone Unavailable Primary Care Provider Unavailabl e Prior Encounters Date Type Department Care Team Description 08/04/2024 11:00 AM CURAM DEVELOPER Office Visit [facility] [address] [place] [address] Neida Zhang, Junito 06/03/2024 12:45 PM CURAM DEVELOPER Office Visit [facility] [address] [place] [address] Arlen Sanchez DDS Unsatisfactory mandaeism of tooth, unspecified (Primary Dx); Encounter for dental examination and cleaning without abnormal findings 11/11/2023 9:00 AM CDT Office Visit [facility] [address] [place] [address] Radha Jones DDS 11/05/2023 Orders Only [facility] [address] [place] [address] Molly Bentley DMD 10/14/2023 1:00 PM CDT Office Visit [facility] [address] [place] [address] Radha Jones DDS 08/13/2023 2:15 PM CURAM DEVELOPER Office Visit [facility] [address] [place] [address] Molly Bentley DMD Encounter for dental examination and cleaning without abnormal findings (Primary Dx) 02/03/2023 Travel 02/03/2023 2:00 PM CDT Office Visit [facility] [address] [place] [address] Molly Bentley, DMD 10/08/2022 Travel 10/08/2022 2:00 PM CDT Office Visit [facility] [address] [place] [address] Molly Bentley, DMD 09/03/2022 2:45 PM CURAM DEVELOPER Office Visit [facility] [address] [place] [address] Molly Bentley, DMD 08/05/2022 2:30 PM CURAM DEVELOPER Office Visit [facility] [address] [place] [address] Molly Bentley, DMD 07/08/2022 3:15 PM CURAM DEVELOPER Office Visit [facility] [address] [place] [address] Molly Bentley, DMD 04/28/2022 1:15 PM CDT Office Visit [facility] [address] [place] [address] Molly Benltey, DMD 04/09/2022 10:00 AM CDT Office Visit [facility] [address] [place] [address] Cj Monzon DDS 03/19/2022 10:00 AM CDT Office Visit [facility] [address] [place] [address] Molly Bentley, DMD Last Filed Vital Signs [...] PM CDT Office Visit [facility] [address] [address] Laura Archieelizabeth Delroy Benavides, DDS [address] [address] Procedures Procedure Name Priority Date/Time Associated Diagnosis Comments ORAL HYGIENE INSTRUCTIONS Routine 2024 11:00 AM CURAM DEVELOPER TOPICAL APPLICATION OF FLUORIDE VARNISH Routine 08/04/2024 11:00 AM CURAM DEVELOPER ANNE-MARIE DECON Routine 08/04/2024 11:00 AM CURAM DEVELOPER SCALING IN PRESENCE OF GENERALIZED MODERATE OR SEVERE GINGIVAL INFLAMMATION Routine 08/04/2024 11:00 AM CURAM DEVELOPER LR ANTIBACT IRR/QUAD Routine 08/04/2024 11:00 AM CURAM DEVELOPER LL ANTIBACT IRR/QUAD Routine 08/04/2024 11:00 AM CURAM DEVELOPER UL ANTIBACT IRR/QUAD Routine 08/04/2024 11:00 AM CURAM DEVELOPER UR ANTIBACT IRR/QUAD Routine 08/04/2024 11:00 AM CURAM DEVELOPER BITEWINGS - FOUR RADIOGRAPHIC IMAGES Routine 06/03/2024 12:45 PM CURAM DEVELOPER PERIODIC ORAL EVALUATION - ESTABLISHED PATIENT Routine 06/03/2024 12:45 PM CURAM DEVELOPER Encounter for dental examination and cleaning without [...] - ADULT Routine 08/13/2023 2 :15 PM CURAM DEVELOPER Encounter for dental examination and cleaning without abnormal findings PERIODIC ORAL EVALUATION - ESTABLISHED PATIENT Routine 08/13/2023 2:15 PM CURAM DEVELOPER Encounter for dental examination and cleaning without abnormal findings BITEWINGS - FOUR RADIOGRAPHIC IMAGES Routine 08/13/2023 2:15 PM CURAM DEVELOPER PROPHYLAXIS - ADULT Routine 02/03/2023 2 :00 [...] ONE SURFACE, POSTERIOR Routine 09/03/2022 2:45 PM CURAM DEVELOPER 29 DO RESIN-BASED COMPOSITE - TWO SURFACES, POSTERIOR Routine 09/03/2022 2:45 PM CURAM DEVELOPER 20 DO RESIN-BASED COMPOSITE - TWO SURFACES, POSTERIOR Routine 09/03/2022 2:45 PM CURAM DEVELOPER 18 MO RESIN-BASED COMPOSITE - TWO SURFACES, POSTERIOR Routine 09/03/2022 2:45 PM CURAM DEVELOPER 30 MOD RESIN-BASED COMPOSITE - THREE SURFACES, POSTERIOR Routine 09/03/2022 2:45 PM CURAM DEVELOPER ORAL HYGIENE INSTRUCTIONS Routine 2022 2:30 PM CURAM DEVELOPER PROPHYLAXIS - ADULT Routine 08/05/2022 2 :30 PM CURAM DEVELOPER INTRAORAL PHOTO Routine 08/05/2022 2:30 PM CURAM DEVELOPER INTRAORAL PHOTO Routine 08/05/2022 2:30 PM CURAM DEVELOPER INTRAORAL PHOTO Routine 08/05/2022 2:30 PM CURAM DEVELOPER INTRAORAL PHOTO Routine 08/05/2022 2:30 PM CURAM DEVELOPER PANORAMIC RADIOGRAPHIC IMAGE Routine 08/05/2022 2:30 PM CURAM DEVELOPER INTRAORAL - COMPREHENSIVE SERIES OF RADIOGRAPHIC IMAGES Routine 08/05/2022 2:30 PM CURAM DEVELOPER COMPREHENSIVE ORAL EVALUATION - NEW OR ESTABLISHED PATIENT Routine 08/05/2022 2:30 PM CURAM DEVELOPER LIMITED ORAL EVALUATION - PROBLEM FOCUSED Routine 07/08/2022 3:15 PM CURAM DEVELOPER SINGLE X-RAY Routine 07/08/2022 3:15 PM CURAM DEVELOPER 19 CEMENT CROWN Routine 04/28/2022 1:15 PM [...] PULP VITALITY TESTS Routine 10:00 AM CDT MANAGER MATERIAL CONSULT Routine 04/09/2022 1 0:00 AM CDT 19 ENDODONTIC THERAPY, MOLAR TOOTH (EXCLUDING FINAL EPISCOPALIAN) Routine 04/09/2022 10:00 AM CDT PANORAMIC RADIOGRAPHIC [...] and cleaning without abnormal findings 08/13/2023 Unsatisfactory mandaeism of tooth, unspecified 06/03/2024 Encounter for dental examination and cleaning without abnormal findings 06/03/2024 Insurance [facility]
--- OUTSIDE RECORDS SUMMARY | 2024-11-22 13:03 | XMS_ITS | Clinical Summary ---
Author Organization [facility] Address [address] [place] [address] Care Team Providers Care Mixing Tumbler Operator Name Role Phone Willie Baldwin Primary Care Provider Ricky perales Source Comments [facility],non-owned Affiliates and Associated Physician Practices is amultiple site organization consisting of ambulatory clinics and hospital sitesin [place], [place], [place] and [place]. This disclosure is being madepursuant to the Care Everywhere program and may not contain all information available regarding this patient. Last updated 18.[facility] Allergies Active Allergy Reactions Criticality Noted Date [...] on file Legal Sex Female 5:26 AM AUDIO EXPERIENCE EXPERT Gender Identity Not on file Sexual Orientation [...] 7:43 PM CDT Height 168.8 cm (5' 6.44) 01/30/2016 1 0:00 AM CDT Body Mass [...] patient's age to complete this topic Insurance [employer] PLAN Care Teams Mixing Tumbler Operator Relationship Specialty Start Date End Date Willie Baldwin PCP - General Pediatrics 02/27/14
--- OUTSIDE RECORDS SUMMARY | 2024-11-22 13:03 | XMS_ITS | Patient Health Record ---
Author Organization [facility] Address [address] [place] [address] Care Team Providers Care Product Support Rep Name Role Phone Cely Diaz Primary Care Provider [phone] Allergies Allergen (clinical drug ingredient) Drug/Non Drug [...] Problem Status W/U Status Risk Notes Problem [id number] Obesity (E66.9) Active confirmed Problem [id number] Major depression (F32.9) Active confirmed Plan Of Treatment No Information Insurance Providers Payer Name Payer Address Payer Phone Subscriber Number Group Number Insured Name Patient Relationship to Insured Coverage Start Date Coverage End Date [employer] [employer] PLAN [facility] [address] [address] [place] [address] [id number] Sarah Solitario Self - patient is the insured 6 Medical (General) History Medical History History ICD Code ADHD (attention deficit hyperactivity di sorder)
--- OUTSIDE RECORDS SUMMARY | 2024-11-22 13:03 | XMS_ITS | Clinical Summary ---
Author Organization [facility] [place] [address] Address [address] [place] [phone] Care Team Providers Care Line Patrolman Name Role Phone Cassandra Velázquez NP Primary Care Provider [phone] Allergies Active Allergy Reactions Criticality Noted Date [...] 07/14/2024 Assessment & Plan (07/14/2024 10:37 AM AIR TRAFFIC COORDINATOR): BMI Follow-up includes: education provided. Annual physical exam 06/16/2024 Assessment & Plan (06/16/2024 3:16 PM AIR TRAFFIC COORDINATOR): -Recommended: Healthy diet. Avoiding junk food/fast food. [...] 05/19/2024 Assessment & Plan (06/16/2024 3:15 PM AIR TRAFFIC COORDINATOR): Improved. Does not feel like she needs anything further for depression. Feels like she is doing well enough with the Adderall XR. We will continue to monitor. Follow-up 6 months Assessment & Plan (05/19/2024 2:31 PM AIR TRAFFIC COORDINATOR): Positive PHQ. We are going to start by retreating the ADHD. I am going to have her follow-up in 1 month to rediscuss the depression anxiety and daily marijuana use. Shellfish allergy 05/19/2024 Assessment & Plan (05/19/2024 2:32 PM AIR TRAFFIC COORDINATOR): Anaphylactic shellfish allergy. Prescription for epinephrine pen Asthma 11/11/2023 Assessment & Plan (05/19/2024 2:32 PM AIR TRAFFIC COORDINATOR): Seasonal. Unsure how well controlled this is. She is using her albuterol inhaler periodically. 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 Continue Adderall XR 20 mg once daily. Call for refills. May follow up in 6 months Assessment & Plan (05/19/2024 2:30 PM AIR TRAFFIC COORDINATOR): Previously diagnosed. Will restart Adderall XR 20 mg once daily. Will have her follow-up in 1 month for recheck Developmental disability 08/10/2009 Encounters Date Type Department Care Team Description 11/18/2024 Orders Only [facility] Primary Care at [address] [address] Provider, MD Kat from Last 3 Months Immunizations Immunization Administration Dates Next Due DTaP [...] on file Legal Sex Female 11:24 PM AIR TRAFFIC COORDINATOR Gender Identity Not on file Sexual Orientation Not on file Obstetrics History Last Filed Vital Signs Vital Sign Reading Time Taken Comments Blood Pressure 136/86 06/16/2024 2:33 PM AIR TRAFFIC COORDINATOR Pulse 80 06/16/2024 2:33 PM AIR TRAFFIC COORDINATOR Temperature 36.8 C (98.2 F) 06/16/2024 2:33 PM AIR TRAFFIC COORDINATOR Respiratory Rate 18 06/16/2024 2:33 PM AIR TRAFFIC COORDINATOR Oxygen Saturation 99% 06/16/2024 2:33 PM AIR TRAFFIC COORDINATOR Inhaled Oxygen Concentration - - Weight 141.3 kg (311 lb 6.4 oz) 06/16/2024 2:33 PM AIR TRAFFIC COORDINATOR Height 177.8 cm (5' 10) 06/16/2024 2:33 PM AIR TRAFFIC COORDINATOR Body Mass Index 44.68 06/16/2024 2:33 PM AIR TRAFFIC COORDINATOR Plan of Treatment Health Maintenance Due Date [...] 06/16/2025 06/16/2024 Hepatitis B Screening Completed 09/14/2002 Procedures Procedure Name Priority Date/Time Associated Diagnosis Comments US OB LIMITED Schedule Routine, Read Routine (OP Routine) 11/16/2024 7:41 AM CDT from Last 3 Months Results * US Ob Limited (11/16/2024 7:41 AM CDT) Anatomical Region Laterality Modality Abdomen N/A Ultrasound us Historical Provider MD [facility] OB US PROCEDURES Julianna l Result from Last 3 Months Insurance [facility] Care Teams Line Patrolman Relationship Specialty Start Date End Date Cassandra Velázquez NP PCP - General Family Medicine 05/19/24
[2024-11-22 14:50] LABS: Glucose 1 Hour PP 50gm Dose 76 mg/dL
[2024-11-22 14:58] LABS: Hematocrit 39.4 % (37.0-47.0); Hemoglobin 12.3 g/dL (12.0-15.0); Mean Corpuscular HGB Conc 31.2 g/dl (32-36); Mean Corpuscular Hemoglobin 26.4 pg (26-34); Mean Corpuscular Volume 84.5 fl (80-100); Mean Platelet Volume 8.5 fl (7.4-10.4); Platelet Count Result 466 k/mm3 (150-375); Red Blood Count 4.66 M/mm3 (4.2-5.4); Red Cell Distribution Width 14.7 % (11.5-14.5); White Blood Count 10.2 K/mm3 (4.5-10.0)
[2024-11-22 15:17] LABS: Syphilis IgG/IgM Antibody Negative (Negative)
[2024-11-22 15:22] LABS: Hepatitis B Surface Antigen Negative (Negative); Rubella IgG Antibody 12.1 IU/ML
[2024-11-22 15:30] LABS: HIV 1/2 Ab P24 Ag Result Negative (Negative)
[2024-11-24 03:33] LABS: CMV IgG Antibody <0.60 U/mL; Varicella IgG Antibody 3.53 S/CO
== END 2024-11-22 12:59 | disposition home or self-care (01) ==
LOC: ANHLAB 12:59
PROVIDERS: PCP Nurse Practitioner Family; Visit Provider Student in an Organized Health Care Education/Training Program
DX: N91.2 Amenorrhea, unspecified (principal)
CPT/HCPCS: 36415; 82947; 84702; 85027; 85660; 86593; 86644; 86703; 86747; 86762; 86787; 86850; 86900; 86901; 87086; 87340; G0432

== ENCOUNTER 2025-04-10 13:09 | Outpatient (CLI) | payer BC, SELFPAY ==
--- OUTSIDE RECORDS SUMMARY | 2025-04-10 14:19 | XMS_ITS | Clinical Summary ---
Author Organization [facility] [place] [address] Address [address] [place] [phone] Care Team Providers Care Regional Business Development Manager Name Role Phone Cassandra Velázquez NP Primary Care Provider [phone] Allergies Active Allergy Reactions Criticality Noted Date Comments Amoxicillin Hives,Itching,Rash,S hortness of breath High 03/07/2011 Shellfish Derived Hives,Itching,Rash,S hortness of breath,Swelling,Wheezing High 03/19/2022 Medications albuterol HFA (PROVENTIL HFA,VENTOLIN HFA,PROAIR HFA) 90 mcg/actuation inhaler Inhale 2 puffs every 6 (six) hours as needed for wheezing 1 each 3 4 Active EPINEPHrine 0.3 mg/0.3 mL auto-injection syringeIndicati ons:Anaphylaxis Inject 0.3 mL (0.3 mg total) into the muscle as instructed daily as needed for anaphylaxis 1 each 4 Active vit 39-vfmg-upwwn-d morin 27mg iron- 800 mcg-250 mg capsule Take by mouth Active dextroamphetami ne-amphetamine XR (ADDERALL XR) 20 mg 24 hr capsule Take 1 capsule (20 mg total) by mouth every morning 30 capsule 5 Active Active Problems Problem Noted Date Diagnosed Date Class 3 severe obesity due t o excess calories with serious comorbidity and body mass index (BMI) of 40.0 to 44.9 in adult 07/14/2024 Assessment & Plan (07/14/2024 10:37 AM SANDSTONE INSPECTOR REPAIRER): BMI Follow-up includes: education provided. Annual physical exam 06/16/2024 Assessment & Plan (06/16/2024 3:16 PM SANDSTONE INSPECTOR REPAIRER): -Recommended: Healthy diet. Avoiding junk food/fast food. [...] 05/19/2024 Assessment & Plan (06/16/2024 3:15 PM SANDSTONE INSPECTOR REPAIRER): Improved. Does not feel like she needs anything further for depression. Feels like she is doing well enough with the Adderall XR. We will continue to monitor. Follow-up 6 months Assessment & Plan (05/19/2024 2:31 PM SANDSTONE INSPECTOR REPAIRER): Positive PHQ. We are going to start by retreating the ADHD. I am going to have her follow-up in 1 month to rediscuss the depression anxiety and daily marijuana use. Shellfish allergy 05/19/2024 Assessment & Plan (05/19/2024 2:32 PM SANDSTONE INSPECTOR REPAIRER): Anaphylactic shellfish allergy. Prescription for epinephrine pen Asthma 11/11/2023 Assessment & Plan (05/19/2024 2:32 PM SANDSTONE INSPECTOR REPAIRER): Seasonal. Unsure how well controlled this is. She is using her albuterol inhaler periodically. 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 Continue Adderall XR 20 mg once daily. Call for refills. May follow up in 6 months Assessment & Plan (05/19/2024 2:30 PM SANDSTONE INSPECTOR REPAIRER): Previously diagnosed. Will restart Adderall XR 20 mg once daily. Will have her follow-up in 1 month for recheck Developmental disability 08/10/2009 Estimated Date of Delivery Comme nts Yes 06/21/2025 Immunizations Immunization Administration Dates Next Due DTaP [...] Types Packs/Day Years Used Date Smoking Tobacco: Former Vaping S tarted: 2020 Tobacco Cessation:Counseling Given: Not Answered AUDIT-C Answer Date Recorded Q1: How often [...] more points, staff should administer the PHQ-9) 0 12/15/2024 PHQ-9 Answer Date Recorded PHQ-9 Total Score 3 06/16/2024 Estimated Date of Delivery Comme nts Yes 06/21/2025 Sex and Gender Information Value Date Recorded Sex Assigned at Not on file Legal Sex Female 11:24 PM SANDSTONE INSPECTOR REPAIRER Gender Identity Not on file Sexual Orientation Not on file Obstetrics History Para Term AB IAB SAB Ectopic Multiple Livin g Live Births 1 Date Outcome GA Total Labor Labor/2nd/3rd Weight Sex Type Anes PTL Michelle A1 A5 Name Clin Current Last Filed Vital Signs Vital Sign Reading Time Taken Comments Blood Pressure 122/62 12/15/2024 1:04 PM CDT Pulse 74 12/15/2024 1:04 PM CDT Temperature 36.4 C (97.5 F) 12/15/2024 1:04 PM CDT Respiratory Rate 18 06/16/2024 2:33 PM SANDSTONE INSPECTOR REPAIRER Oxygen Saturation 99% 12/15/2024 1:04 PM CDT Inhaled Oxygen Concentration - - Weight 134.7 kg (297 lb) 12/15/2024 1:04 PM CDT Height 177.8 cm (5' 10) 12/15/2024 1:04 PM CDT Body Mass Index 42.62 12/15/2024 1:04 PM CDT Plan of Treatment Health Maintenance Due Date Last Done Comments Hepatitis C Screening 2001 Varicella Vaccines (2 of 2 - 2-dose childhood series) 06/12/2008 03/20/2008 DTaP/Tdap/Td Vaccine (4 - Tdap) 2012 01/15/2006, 06/17/2002, 02/25/2002 HPV Vaccines (1 - 3-dose series) 2016 Meningococcal B Vaccine (1 o f 2 - Standard) 2017 Pneumococcal vaccine <65 (1 of 2 - PCV) 2020 Covid-19 Vaccine (2 - 2024-2 6 season) 2025 10/06/2021 Influenza Vaccine (#1) 2025 8, 06/24/2005, 05/30/2004 Regular Well Visit/Exam 18-64 06/16/2025 06/16/2024 Cervical Cancer Screening 08/17/2025 08/17/2024 Depression Screening 12/15/2025 12/15/2024, 06/16/2024, 05/19/2024, Additional history exists Hepatitis B Screening Completed 09/14/2002 Insurance [facility] Care Teams Regional Business Development Manager Relationship Specialty Start Date End Date Cassandra Velázquez NP [address] [facility] [address] [place] [address] PCP - General Family Medicine 12/12/24
--- OUTSIDE RECORDS SUMMARY | 2025-04-10 14:19 | XMS_ITS | Clinical Summary ---
Author Organization [facility] Health Address [address] [place] [address] Care Team Providers Care Kitchen And Bath Designer Name Role Phone Unavailable Primary Care Provider [...] more than two consecutive weeks). 473 mL Active Hospital, Clinic, or Other Facility Administered Medication Ordered Dose Route Frequency Start Date End Date Status chlorhexidine (PERIDEX) 0.12 % solution 15 mL 15 mL MT 2 times daily 03/02/2025 Active Active Problems Problem Noted Date Diagnosed Date Asthma 11/11/2023 Comments Yes Encounters Date Type Department Care Team Description 03/02/2025 9:00 AM CDT Office Visit [facility] [address] [phone] Arlen Sanchez DDS Encounter for dental examination and cleaning without abnormal findings (Primary Dx) from Last 3 Months Social History Tobacco Use Types Packs/Day Years Used Date Smoking Tobacco: Never Assessed Comments Yes Sex and Gender Information Value Date Recorded Sex Assigned at Female 03/01/2025 7:55 AM PDT Legal Sex Female 6:00 AM PDT Gender Identity Female 03/01/2025 7:55 AM PDT Sexual Orientation Not on file Last Filed [...] Care Team (Late st Contact Info) Description 09/07/2025 11:00 AM CDT Office Visit [facility] [address], [place] [phone] Arlen Sanchez DDS [address] [address] Health Maintenance Due Date Last Done Comments Dental X-Ray: Bitewings 12/03/2024 06/03/2024 Dental X-Ray: Full Mouth 08/07/2025 08/06/2022, 0212/2022 Dental Oral Exam 08/31/2025 03/02/2025, 11/2023, 08/13/2023, Additional history exists Dental Prophylaxis 08/31/2025 03/02/2025, 0 08/13/2023, 02/03/2023, Additional history exists Dental X-Ray: Panoramic 10/15/2026 10/15/2023, 08/05, 03/19/2022 Procedures Procedure Name Priority Date/Time Associated Diagnosis Comments TOPICAL APPLICATION OF FLUORIDE VARNISH Routine 03/02/2025 9:00 AM CDT ORAL HYGIENE INSTRUCTIONS Routine 2024 9:00 AM CDT PROPHYLAXIS - ADULT Routine 03/02/2025 9 :00 AM CDT Encounter for dental examination and cleaning without abnormal findings PERIODIC ORAL EVALUATION - ESTABLISHED PATIENT Routine 03/02/2025 9:00 AM CDT Encounter for dental examination and cleaning without abnormal findings PANORAMIC RADIOGRAPHIC IMAGE Routine 08/05/2022 2:30 PM GED TEACHER INTRAORAL - COMPREHENSIVE SERIES OF RADIOGRAPHIC IMAGES Routine 08/05/2022 2:30 PM GED TEACHER from Last 3 Months or Most Recently Relevant to Health Maintenance Insurance [facility] COMM[facility]CIAL
--- OUTSIDE RECORDS SUMMARY | 2025-04-10 14:20 | XMS_ITS | Encounter Summary ---
Author Organization [facility] Health Address [address] [place] [address] Care Team Providers Care Cloth Finisher Name Role Phone Unavailable Primary Care Provider Unavailabl e Prior Encounters Date Type Department Care Team Description 03/02/2025 9:00 AM CDT Office Visit [facility] [address] [place] [phone] Arlen Sanchez DDS Encounter for dental examination and cleaning without abnormal findings (Primary Dx) 08/04/2024 11:00 AM NURSE ADVOCATE Office Visit [facility] [address] [place] [phone] Neida Zhang RDH 06/03/2024 12:45 PM NURSE ADVOCATE Office Visit [facility] [address] [place] [address] Arlen Sanchez DDS Unsatisfactory gnosticist of tooth, unspecified (Primary Dx); Encounter for dental examination and cleaning without abnormal findings 11/11/2023 9:00 AM CDT Office Visit [facility] [address] [place] [phone] Radha Jones DDS 11/05/2023 Orders Only [facility] [address] [place] [address] Molly Bentley DMD 10/14/2023 1:00 PM CDT Office Visit [facility] [address] [place] [address] Radha Jones, DDS 08/13/2023 2:15 PM NURSE ADVOCATE Office Visit [facility] [address] [place] [address] Molly Bentley, DMD Encounter for dental examination and cleaning without abnormal findings (Primary Dx) 02/03/2023 Travel 02/03/2023 2:00 PM CDT Office Visit [facility] [address] [place] [address] Molly Bentley, DMD 10/08/2022 Travel 10/08/2022 2:00 PM CDT Office Visit [facility] [address] [place] [address] Molly Bentley, DMD 09/03/2022 2:45 PM NURSE ADVOCATE Office Visit [facility] [address] [place] [address] Molly Bentley, DMD 08/05/2022 2:30 PM NURSE ADVOCATE Office Visit [facility] [address] [place] [address] Molly Bentley, DMD 07/08/2022 3:15 PM NURSE ADVOCATE Office Visit [facility] [address] [place] [address] Molly Bentley, DMD 04/28/2022 1:15 PM CDT Office Visit [facility] [address] [place] [address] Molly Bentley, DMD 04/09/2022 10:00 AM CDT Office Visit [facility] [address] [place] [address] Cj Monzon, DDS 03/19/2022 10:00 AM CDT Office Visit [facility] [address] [place] [address] Molly Bentley, DMD Last Filed Vital Signs [...] Description 09/07/2025 11:00 AM CDT Office Visit [facility] [address] [place] [address] Arlen Sanchez, DDS [address] [place] [address] Procedures Procedure Name Priority Date/Time Associated Diagnosis [...] dental examination and cleaning without abnormal findings ORAL HYGIENE INSTRUCTIONS Routine 2024 11:00 AM NURSE ADVOCATE TOPICAL APPLICATION OF FLUORIDE VARNISH Routine 08/04/2024 11:00 AM NURSE ADVOCATE ANNE-MARIE DECON Routine 08/04/2024 11:00 AM NURSE ADVOCATE SCALING IN PRESENCE OF GENERALIZED MODERATE OR SEVERE GINGIVAL INFLAMMATION Routine 08/04/2024 11:00 AM NURSE ADVOCATE LR ANTIBACT IRR/QUAD Routine 08/04/2024 11:00 AM NURSE ADVOCATE LL ANTIBACT IRR/QUAD Routine 08/04/2024 11:00 AM NURSE ADVOCATE UL ANTIBACT IRR/QUAD Routine 08/04/2024 11:00 AM NURSE ADVOCATE UR ANTIBACT IRR/QUAD Routine 08/04/2024 11:00 AM NURSE ADVOCATE BITEWINGS - FOUR RADIOGRAPHIC IMAGES Routine 06/03/2024 12:45 PM NURSE ADVOCATE PERIODIC ORAL EVALUATION - ESTABLISHED PATIENT Routine 06/03/2024 12:45 PM NURSE ADVOCATE Encounter for dental examination and cleaning without [...] PER SITE Routine 11/11/2023 9:00 AM CDT OS CONSULT Routine 10/14/2023 1:00 PM CDT PROPHYLAXIS - ADULT Routine 08/13/2023 2 :15 PM NURSE ADVOCATE Encounter for dental examination and cleaning without abnormal findings PERIODIC ORAL EVALUATION - ESTABLISHED PATIENT Routine 08/13/2023 2:15 PM NURSE ADVOCATE Encounter for dental examination and cleaning without abnormal findings BITEWINGS - FOUR RADIOGRAPHIC IMAGES Routine 08/13/2023 2:15 PM NURSE ADVOCATE PROPHYLAXIS - ADULT Routine 02/03/2023 2 :00 [...] ONE SURFACE, POSTERIOR Routine 09/03/2022 2:45 PM NURSE ADVOCATE 29 DO RESIN-BASED COMPOSITE - TWO SURFACES, POSTERIOR Routine 09/03/2022 2:45 PM NURSE ADVOCATE 20 DO RESIN-BASED COMPOSITE - TWO SURFACES, POSTERIOR Routine 09/03/2022 2:45 PM NURSE ADVOCATE 18 MO RESIN-BASED COMPOSITE - TWO SURFACES, POSTERIOR Routine 09/03/2022 2:45 PM NURSE ADVOCATE 30 MOD RESIN-BASED COMPOSITE - THREE SURFACES, POSTERIOR Routine 09/03/2022 2:45 PM NURSE ADVOCATE ORAL HYGIENE INSTRUCTIONS Routine 2022 2:30 PM NURSE ADVOCATE PROPHYLAXIS - ADULT Routine 08/05/2022 2 :30 PM NURSE ADVOCATE INTRAORAL PHOTO Routine 08/05/2022 2:30 PM NURSE ADVOCATE INTRAORAL PHOTO Routine 08/05/2022 2:30 PM NURSE ADVOCATE INTRAORAL PHOTO Routine 08/05/2022 2:30 PM NURSE ADVOCATE INTRAORAL PHOTO Routine 08/05/2022 2:30 PM NURSE ADVOCATE PANORAMIC RADIOGRAPHIC IMAGE Routine 08/05/2022 2:30 PM NURSE ADVOCATE INTRAORAL - COMPREHENSIVE SERIES OF RADIOGRAPHIC IMAGES Routine 08/05/2022 2:30 PM NURSE ADVOCATE COMPREHENSIVE ORAL EVALUATION - NEW OR ESTABLISHED PATIENT Routine 08/05/2022 2:30 PM NURSE ADVOCATE LIMITED ORAL EVALUATION - PROBLEM FOCUSED Routine 07/08/2022 3:15 PM NURSE ADVOCATE SINGLE X-RAY Routine 07/08/2022 3:15 PM NURSE ADVOCATE 19 CEMENT CROWN Routine 04/28/2022 1:15 PM [...] PULP VITALITY TESTS Routine 10:00 AM CDT ENDO CONSULT Routine 04/09/2022 10:00 AM CDT 19 ENDODONTIC THERAPY, MOLAR TOOTH (EXCLUDING FINAL BUDDHISM) Routine 04/09/2022 10:00 AM CDT PANORAMIC RADIOGRAPHIC [...] and cleaning without abnormal findings 08/13/2023 Unsatisfactory gnosticist of tooth, unspecified 06/03/2024 Encounter for dental examination and cleaning without abnormal findings 06/03/2024 Encounter for dental examination and cleaning without abnormal findings 03/02/2025 Insurance O [facility]CIAL
--- OUTSIDE RECORDS SUMMARY | 2025-04-10 14:20 | XMS_ITS | Clinical Summary ---
Author Organization [facility] Address [address] 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 This disclosure is being madepursuant to the Care Everywhere program and may not contain all information available regarding this patient. Last updated 18.[facility] [employer] Allergies Active Allergy Reactions Criticality Noted Date [...] unspecified, knee, leg, ankle, and foot 10/18/2011 Estimated Date of Delivery Comme nts Yes 06/21/2025 Based on Ultraso und Encounters Date Type Department Care Team Description 04/07/2025 1:45 PM CDT - 04/07/2025 11:59 PM CDT Hospital Encounter formerly [facility] [address] [place] [phone] Cj Frost MD Discharge Disposition: Home or Self Care 03/10/2025 1:00 PM CDT - 03/10/2025 11:59 PM CDT Hospital Encounter formerly [facility] [address] [place] [phone] Octavio Toure MD [employer] Discharge Disposition: Home or Self Care 03/10/2025 Travel 02/03/2025 12:59 PM CDT - 02/03/2025 11:59 PM CDT Hospital Encounter formerly [facility] [address] [place] [phone] Unknown, Provider Adrianna Boyce MD Discharge Disposition: Home or Self Care from Last 3 Months Social History Tobacco Use Types Packs/Day Years Used Date Smoking Tobacco: Never Smokeless Tobacco: Never Alcohol Use Standard Drinks/Week Comments No 0 (1 standard drink = 0.6 oz pur e alcohol) Estimated Date of Delivery Comme nts Yes 06/21/2025 Based on Ultraso und Sex and Gender Information Value Date Recorded Sex Assigned at Not on file Legal Sex Female 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 Gender Identity Not on file Sexual Orientation [...] Mass Index - - Plan of Treatment Upcoming Encounters Date Type Department Care Team (Late st Contact Info) Description 04/12/2025 2:30 PM CDT Appointment formerly [facility] [address] [place] [phone] Chanel Gardner MD [address] [phone] 04/12/2025 3:15 PM CDT Hospital Encounter formerly [facility] [address] [place] [phone] Chanel Gardner MD [address] [phone] Health Maintenance Due Date Last Done Comments HIV SCREENING 2016 HPV VACCINE (1 - 3-dose series) 2016 CHLAMYDIA/GONORRHEA SCREENING 2017 MENINGOCOCCAL (Group B) VACCINE SHARED DECISION-MAKING (1 of 2 - Standard) 2017 HEPATITIS C SCREENING 12/05/2019 DTAP/TDAP/TD VACCINES (1 - Tdap) 2020 HEPATITIS B VACCINE (1 of 3 - 19+ 3-dose series) 2020 PAP SMEAR 2022 DEPRESSION SCREENING 06/29/2024 COVID-19 VACCINE (2 - 2024-2 6 season) 2025 10/06/2021 INFLUENZA VACCINE (#1) 2025 8, 06/24/2005, 05/30/2004 OB-ONE HOUR GLUCOSE 03/15/2025 OB-TDAP CURRENT 03/22/2025 OB-RHOGAM INJECTION 03/29/2025 Respiratory Syncytial Virus (RSV) Vaccine Pt: or over 60 yrs (1 - Risk 1-dose series) 04/26/2025 ZOSTER VACCINE (1 of 2) 12/10/2051 HIB VACCINE Aged Out No longer eligi ble based on patient's age to complete this topic MENINGOCOCCAL GROUPS A/C/Y/W VACCINE Aged Out No longer eligible b ased on patient's age to complete this topic PNEUMOCOCCAL VACCINE Aged Out No long er eligible based on patient's age to complete this topic Procedures Procedure Name Priority Date/Time Associated Diagnosis Comments SONOGRAM - COMPLETE Routine 03/10/2025 1 :08 PM CDT Maternal morbid obesity in second trimester, antepartum ([facility]) Encounter for ultrasound to assess growth ([facility]) Maternal tobacco use in second trimester ([facility]) 25 weeks gestation of ([facility]) Encounter for follow-up ultrasound of anatomy ([facility]) SONOGRAM - COMPLETE Routine 02/03/2025 1 :06 PM CDT Maternal morbid obesity in second trimester, antepartum ([facility]) Encounter for anatomic survey ([facility]) Maternal tobacco use in second trimester ([facility]) 20 weeks gestation of ([facility]) from Last 3 Months Results * Sonogram - Complete (03/10/2025 1:08 PM CDT) Only the most recent of2 resultswithin the time period is included. Linked Results Indication ======== Incomplete anatomy Obesity complicating , Class 3 - BMI of 40.0 or greater History ====== OB History 1 Lab Tests Test Date Result NIPT Declined Maternal Assessment Physical Exam Height 178 cm, 5 ft 10 in. Weight 146 kg, 321 lb. Initial weight 140 kg, 308 lb. BMI 46.06 kg/m . Initial BMI 44.19 kg/m . Weight gain 6 kg, 13 lb Method ====== Transabdominal ultrasound. View: limited secondary to challenging acoustic properties ========= Jackson . Number of fetuses: 1 Dating ====== Date Details Gest. age MATHIEU Stated MATHIEU 25 w + 2 d 06/21/2025 U/S 03/10/2025 based upon AC, BPD, Femur, HC 25 w + 6 d 06/17/2025 Assigned dating based on stated MATHIEU, selected on 02/03/2025 25 w + 2 d 06/21/2025 General Evaluation Cardiac activity present. FHR 151 bpm. Presentation: cephalic Placenta: Placental site: posterior Umbilical cord: Cord vessels: 3 vessel cord - previously documented. Insertion site: normal insertion Amniotic fluid: Amount of AF: normal. MVP 7.8 cm Biometry BPD 65.8 mm 26w 4d 82% Hadlock HC 238.4 mm 25w 6d 50% Hadlock AC 211.2 mm 25w 5d 53% Hadlock Femur 46.3 mm 25w 3d 39% Hadlock Humerus 43.0 mm 25w 5d 57% Jean-Claude HC / AC 1.13 Weight Calculation: EFW 833 g 54% Hadlock EFW (lb,oz) 1 lb 13 oz EFW by Hadlock ([id number]) appropriate Growth Overview Exam date GA BPD (mm) HC (mm) AC (mm) FL (mm) HL (mm) EFW (g) 02/03/2025 20w 2d 46.3 37% 173.9 26% 153.8 54% 34 56% 34.8 95% 360 58% 03/10/2025 25w 2d 65.8 82% 238.4 50% 211.2 53% 46.3 39% 43 57% 833 54% Anatomy The following structures appear normal: Face Lips. Nose. Heart / Thorax 3-vessel view. Aortic arch view. Bicaval view. Ductal arch view. Abdomen Stomach. Kidneys. Bladder. Extremities / Skeleton Left hand. Legs. Feet. The following structures could not be adequately visualized: Heart / Thorax 4-chamber view. RVOT view. LVOT view. 1-[id number] view. Situs. Great vessels. Right lung. Left lung. The following structures were documented previously: Head / Neck Cranium. Lateral ventricles. Choroid plexus. Midline falx. Cavum septi pellucidi. Cerebellum. Cisterna magna. Thalami. Nuchal fold. Face Profile. Nasal bone. Orbits. Heart / Thorax Diaphragm. Abdomen Cord insertion. Bowel. Genitals. Spine Cervical spine. Thoracic spine. Lumbar spine. Sacral spine. Extremities / Skeleton Arms. Right hand. Impression ========= Single, live, intrauterine at 25w 2d The size is appropriate. The amniotic fluid volume is normal. No major malformations were seen within the limitations of ultrasound Comment ======== ultrasound alone cannot detect all structural, genetic, or functional , placental, or maternal abnormalities Follow-up ======== Follow up ultrasound in 4 weeks for growth and to complete anatomic survey Coding ====== Diagnoses O99.212, E66.813: Obesity complicating , Class 3 - BMI of 40.0 or greater Z36.2: Encounter for other screening follow-up Procedures 59296: US Preg Uterus Follow Up . [facility] Tomorrowish PACS Anatomical Region Laterality Modality Other 03/10/2025 1:08 PM CDT Adrianna Boyce MD [facility] ORDERABLES Edited Result - Final from Last 3 Months Insurance [facility]
--- OUTSIDE RECORDS SUMMARY | 2025-04-10 14:20 | XMS_ITS | Patient Health Record ---
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 Name Role Phone Cely Diaz Primary Care Provider Allergies Allergen (clinical drug ingredient) Drug/Non Drug [...] for one week then increase to full tab; Duration: 30 days Active Social History Tobacco Use: Social History Observation Description Date Details (start date - stop date) Never Smoker NA - NA Dont use, Tobacco Use/Smoking Question Answer Notes Are you a nonsmoker Problems Problem Type SNOMED Code ICD Code Onset Dates Problem Status W/U Status Risk Notes Problem Obesity (999222055) Obesity (E66.9) Active confirmed Problem Major depression (517163005) Major depression (F32.9) Active confirmed Plan Of Treatment No Information Insurance Providers Payer Name Payer Address Payer Phone Subscriber Number Group Number Insured Name Patient Relationship to Insured Coverage Start Date Coverage End Date COUNTS INCLUDE [facility]S AT [facility] [address] [address] [place] [address] [id number] Sarah Solitario Self - patient is the insured 6 Medical (General) History Medical History History ICD Code ADHD (attention deficit hyperactivity di sorder)
[2025-04-10 14:38] LABS: Hematocrit 36.2 % (37.0-47.0); Hemoglobin 11.5 g/dL (12.0-15.0); Mean Corpuscular HGB Conc 31.8 g/dl (32-36); Mean Corpuscular Hemoglobin 26.5 pg (26-34); Mean Corpuscular Volume 83.4 fl (80-100); Platelet Count Result 422 k/mm3 (150-375); Red Blood Count 4.34 M/mm3 (4.2-5.4); White Blood Count 11.7 K/mm3 (4.5-10.0)
[2025-04-10 15:03] LABS: Glucose 1 Hour PP 50gm Dose 94 mg/dL
[2025-04-10 15:31] LABS: Syphilis IgG/IgM Antibody Non-Reactive (Nonreactive)
[2025-04-10 15:44] LABS: HIV 1/2 Ab P24 Ag Result Negative (Negative)
== END 2025-04-10 13:10 | disposition home or self-care (01) ==
LOC: ANHLAB 13:10
PROVIDERS: PCP Nurse Practitioner Family; Visit Provider Student in an Organized Health Care Education/Training Program
DX: Z34.90 Encounter for supervision of normal pregnancy, unspecified, unspecified trimester (principal); Z3A.00 Weeks of gestation of pregnancy not specified
CPT/HCPCS: 36415; 82947; 85027; 86593; 86703; G0432

== ENCOUNTER 2025-05-13 17:27 | Outpatient (RCR) | payer BC, SELFPAY ==
[2025-05-13 18:24] VITALS: BP 129/69; PULSE 78
== END 2025-06-17 11:31 | disposition other institution (70) ==
LOC: ANHOBOP 17:27
PROVIDERS: PCP Nurse Practitioner Family; Visit Provider Student in an Organized Health Care Education/Training Program
DX: O36.8130 Decreased fetal movements, third trimester, not applicable or unspecified (principal); Z3A.34 34 weeks gestation of pregnancy
CPT/HCPCS: 59025

== ENCOUNTER 2025-06-01 11:05 | Outpatient (CLI) | payer BC, SELFPAY ==
[2025-06-01 11:39] VITALS: BP 153/82; PULSE 63
[2025-06-01 11:42] LABS: Hematocrit 35.9 % (37.0-47.0); Hemoglobin 11.3 g/dL (12.0-15.0); Immature Granulocyte Percent A 0.3 % (0-0.5); Lymphocytes Absolute Auto 1.83 K/mm3 (0.9-3.2); Mean Corpuscular HGB Conc 31.5 g/dl (32-36); Mean Corpuscular Hemoglobin 26.4 pg (26-34); Mean Corpuscular Volume 83.9 fl (80-100); Nucleated Red Blood Cells Absolute Auto 0.000 K/mm3 (0.0-0.012); Nucleated Red Blood Cells Perc 0.0 % (0.0-0.2); Platelet Count Result 347 k/mm3 (150-375); Red Blood Count 4.28 M/mm3 (4.2-5.4); White Blood Count 8.0 K/mm3 (4.5-10.0)
[2025-06-01 11:46] VITALS: BP 160/85; PULSE 62
[2025-06-01 11:56] LABS: Total Protein Urine Random 97 mg/dL; Ur Ttl Prot Creatinine Ratio 0.36 mg/mg (0-0.20)
[2025-06-01 12:01] VITALS: BP 137/69; PULSE 67
[2025-06-01 12:01] LABS: Add Urine Microscopic? YES; Appearance Urine Cloudy (Clear); Glucose Urine UA Negative (Negative); Leukocyte Esterase Ur Trace LEU/UL (Negative); Need Manual Microscopic Reviewed; Nitrate Urine Negative (Negative); Non Pathogenic Casts 0-2; Specific Grav Ur 1.031 (1.001-1.035)
[2025-06-01 12:09] LABS: Alanine Aminotransferase 16 U/L (6-35); Albumin Level 2.9 g/dL (3.5-5.1); Alkaline Phosphatase 118 U/L (38-126); Anion Gap -1 mmol/L (4-12); Aspartate Amino Transferase 29 U/L (14-36); Bilirubin,Total 0.2 mg/dL (0.2-1.3); Blood Urea Nitrogen 9 mg/dL (7-17); Calcium 8.7 mg/dL (8.4-10.2); Carbon Dioxide 25 mmol/L (22-30); Chloride 110 mmol/L (98-107); Estimated Glomerular Filt Rate > 60; Glucose 88 mg/dL (65-110); Potassium 3.8 mmol/L (3.4-5.0); Sodium 134 mmol/L (137-145); Total Protein 6.2 g/dL (6.3-8.2); Uric Acid 5.2 mg/dL (2.5-7.5)
[2025-06-01 12:16] VITALS: BP 134/59; PULSE 67
[2025-06-01 12:31] VITALS: BP 139/62; PULSE 65
[2025-06-01 12:37] VITALS: BP 139/62; PULSE 64
== END 2025-06-01 12:40 | disposition home or self-care (01) ==
LOC: ANHOBOP 11:13 → ANHOBPP 11:16
PROVIDERS: Obstetrics & Gynecology; PCP Nurse Practitioner Family; Visit Provider Student in an Organized Health Care Education/Training Program
DX: O13.9 Gestational [pregnancy-induced] hypertension without significant proteinuria, unspecified trimester (principal); Z3A.00 Weeks of gestation of pregnancy not specified
CPT/HCPCS: 36415; 59025; 80053; 81001; 82570; 84156; 84550; 85025; 87086; 99199

== ENCOUNTER 2025-06-07 19:30 | Inpatient (IN) | payer BC, SELFPAY ==
[2025-06-07] VITALS (45 sets, daily range): BP systolic 147–164; BP diastolic 83–98; PULSE 73–104; TEMP 36.9; O2SAT 95–100
--- NOTE | 2025-06-07 20:29 | LDADM ---
This patient, Sarah Wilde, was admitted to Labor/Delivery/Recovery 108 on 06/07/25 at 19:30. Plans for labor, pain management and were discussed with patient. Patient/family oriented to hospital policies and general routines including ID bracelet, bed and alarms, visiting hours, pain management, procedures, bathroom and other care routines, personal items, smoking policy, room service/diet and guest tray routines, infant security routines, and visiting hours. Patient/Family are encouraged to report perceived risks to care and to ask questions if they do not understand what they are told or what they should do. See [facility] for further documentation.
[2025-06-07 20:59] LABS: Hematocrit 38.0 % (37.0-47.0); Hemoglobin 12.1 g/dL (12.0-15.0); Immature Granulocyte Percent A 0.6 % (0-0.5); Lymphocytes Absolute Auto 2.44 K/mm3 (0.9-3.2); Mean Corpuscular HGB Conc 31.8 g/dl (32-36); Mean Corpuscular Hemoglobin 26.7 pg (26-34); Mean Corpuscular Volume 83.9 fl (80-100); Nucleated Red Blood Cells Absolute Auto 0.000 K/mm3 (0.0-0.012); Nucleated Red Blood Cells Perc 0.0 % (0.0-0.2); Platelet Count Result 406 k/mm3 (150-375); Red Blood Count 4.53 M/mm3 (4.2-5.4); White Blood Count 12.2 K/mm3 (4.5-10.0)
[2025-06-07 21:08] LABS: Add Urine Microscopic? YES; Appearance Urine Clear (Clear); Budding Yeast Urine Present /hpf; Glucose Urine UA Negative (Negative); Leukocyte Esterase Ur Negative LEU/UL (Negative); Need Manual Microscopic Reviewed; Nitrate Urine Negative (Negative); Non Pathogenic Casts 0-2; Specific Grav Ur 1.027 (1.001-1.035)
[2025-06-07 21:09] LABS: Alanine Aminotransferase 18 U/L (6-35); Albumin Level 3.4 g/dL (3.5-5.1); Alkaline Phosphatase 123 U/L (38-126); Anion Gap 4 mmol/L (4-12); Aspartate Amino Transferase 27 U/L (14-36); Bilirubin,Total 0.3 mg/dL (0.2-1.3); Blood Urea Nitrogen 9 mg/dL (7-17); Calcium 9.3 mg/dL (8.4-10.2); Carbon Dioxide 20 mmol/L (22-30); Chloride 107 mmol/L (98-107); Estimated Glomerular Filt Rate > 60; Glucose 97 mg/dL (65-110); Potassium 4.0 mmol/L (3.4-5.0); Sodium 131 mmol/L (137-145); Total Protein 6.8 g/dL (6.3-8.2); Uric Acid 5.0 mg/dL (2.5-7.5)
[2025-06-07 21:13] LABS: Total Protein Urine Random 116 mg/dL; Ur Ttl Prot Creatinine Ratio 0.48 mg/mg (0-0.20)
--- OUTSIDE RECORDS SUMMARY | 2025-06-07 21:25 | XMS_ITS | Clinical Summary ---
Author Organization [facility] BTC Trip Address [address] [place] [address] Care Team Providers Care Building Supervisor Name Role Phone Unavailable Primary Care Provider Unavailabl e Source Comments [facility],non-owned Affiliates and Associated Physician Practices is amultiple site organization consisting of ambulatory clinics and hospital sitesin [place], [place], [place] and [place]. This disclosure is being madepursuant to the Care Everywhere program and may not contain all information available regarding this patient. Last updated 18.[facility] BTC Trip Allergies Active Allergy Reactions Criticality Noted Date Comments Amoxicillin 03/07/2011 Medications * Be aware that medications may not be up to date on this document. Alwaysverify current medications with the patient. sertraline (ZOLOFT) 50 MG tablet Take 1 (one) tablet by mouth at bedtime Active fluticasone diskus (FLOVENT DISKUS) 100 MCG/BLIST inhaler Inhale 1 (one) puff by mouth 2 times daily Rinse mouth after use. Active albuterol (PROVENTIL; VENTOLIN) 90 MCG/ACT inhaler Inhale 2 (two) puffs by mouth every 6 hours as needed Active EPINEPHrine (EPIPEN 2-DEBRA) 0.3 MG/0.3ML auto-injector Inject 0.3 mL into muscle once as needed for Anaphalaxysis for 1 dose. 1 Package 2 1 Active methylphenidat e 24hr (RITALIN LA) 20 MG capsule Take 1 (one) capsule by mouth every morning Active methylphenidat e (RITALIN) 10 MG tablet Take 1 (one) tablet by mouth Every morning and lunchtime Active albuterol HFA (PROVENTIL;BINTA TOLIN;PROAIR) 108 (90 BASE) MCG/ACT inhaler Inhale 4 Puffs by mouth every 6 hours as needed. 1 Inhaler 5 4 Active ibuprofen (MOTRIN) 800 MG tablet Take 1 Tab by mouth every 6 hours as needed for Pain 30 Tab 0 6 Active amphetamine-de xtroamphetamin e (Adderall) 10 MG tablet Take 1 (one) tablet by mouth every morning Active aspirin (Aspirin) 81 MG chew tablet Take 1 (one) tablet by mouth once daily (chew and swallow) Active Vit-DSS-Fe Fum-FA ( vitamin with iron) tablet Take 1 (one) tablet by mouth once daily Active Active Problems Problem Noted Date Diagnosed Date BMI 45.0-49.9, adult 04/23/2025 Obesity affecting in third trimester 1 Encounter for maternal care for poor growth in soto in third trimester 04/23/2025 Injury, other and unspecified, knee, leg, ankle, and foot 10/18/2011 Estimated Date of Delivery Comme nts Yes 06/21/2025 Based on Ultraso und Encounters Date Type Department Care Team Description 06/02/2025 12:49 PM CHRONIC CONDITION NURSE - 06/02/2025 11:59 PM CHRONIC CONDITION NURSE Hospital Encounter [facility] [address] [place] [address] Geetha Dupont MD Discharge Disposition: Home or Self Care 05/23/2025 1:39 PM CHRONIC CONDITION NURSE - 05/23/2025 11:59 PM CHRONIC CONDITION NURSE Hospital Encounter [facility] [address] [place] [address] Kellen Mehta MD Discharge Disposition: Home or Self Care 05/19/2025 10:30 AM CHRONIC CONDITION NURSE - 05/19/2025 11:59 PM CHRONIC CONDITION NURSE Hospital Encounter [facility] [address] [place] [address] Jed Aguilar MD Discharge Disposition: Home or Self Care 05/05/2025 8:03 AM CHRONIC CONDITION NURSE - 05/05/2025 11:59 PM CHRONIC CONDITION NURSE Hospital Encounter [facility] [address] [place] [address] Mino Morgan MD Discharge Disposition: Home or Self Care 04/26/2025 2:29 PM CDT - 04/26/2025 11:59 PM CDT Hospital Encounter [facility] [address] [place] [address] Chanel Gardner MD Discharge Disposition: Home or Self Care 04/24/2025 Orders Only [facility] [address] [place] [address] Wendy Gore RN 04/13/2025 11:30 AM CDT Hospital Encounter [address] [address] Telma Honeycutt MD Discharge Disposition: Home or Self Care 04/13/2025 11:30 AM CDT Hospital Encounter [address] [address] Telma Honeycutt MD Discharge Disposition: Home or Self Care 04/12/2025 3:15 PM CDT - 04/12/2025 11:59 PM CDT Hospital Encounter [facility] [address] [place] [phone] Chanel Gardner MD Discharge Disposition: Home or Self Care 04/12/2025 2:35 PM CDT - 04/12/2025 3:14 PM CDT Hospital Encounter [facility] [address] [place] [phone] Chanel Gardner MD Discharge Disposition: Home or Self Care 04/12/2025 2:30 PM CDT - 04/12/2025 2:34 PM CDT Hospital Encounter [facility] [address] [place] [address] Chanel Gardner MD Discharge Disposition: Home or Self Care 04/12/[address] [address] Jessie Jin RN Appointment 04/07/2025 1:45 PM CDT - 04/07/2025 11:59 PM CDT Hospital Encounter [facility] [address] [place] [address] Cj Frost MD Discharge Disposition: Home or Self Care 03/10/2025 1:00 PM CDT - 03/10/2025 11:59 PM CDT Hospital Encounter [facility] [address] [place] [address] Octavio Toure MD OBSTETRICS GYN PHYSICIAN Discharge Disposition: Home or Self Care 03/10/2025 Travel from Last 3 Months Social History Tobacco [...] on file Legal Sex Female 5:26 AM CHRONIC CONDITION NURSE Gender Identity Not on file Sexual Orientation Not on file Last Filed Vital Signs Vital Sign Reading Time Taken Comments Blood Pressure 133/78 06/02/2025 1:35 PM CHRONIC CONDITION NURSE Pulse 72 06/02/2025 1:35 PM CHRONIC CONDITION NURSE Temperature 36.6 C (97.8 F) 03/25/2016 7:43 PM CDT Respiratory Rate 16 03/25/2016 7:43 PM CDT Oxygen Saturation 98% 02/28/2014 12:20 AM CDT Inhaled Oxygen Concentration - - Weight 151.5 kg (334 lb) 04/12/2025 3:44 PM CDT Height 168.8 cm (5' 6.44) 01/30/2016 10:00 AM C DT Body Mass Index - - Plan of Treatment Upcoming Encounters Date Type Department Care Team (Late st Contact Info) Description 06/09/2025 1:00 PM CHRONIC CONDITION NURSE Hospital Encounter [facility] [address] [place] [address] Jolene Garcia MD [address] [address] 06/16/2025 1:00 PM CHRONIC CONDITION NURSE Hospital Encounter [facility] [address] [place] [address] Health Maintenance Due Date Last Done Comments HIV SCREENING 2016 HPV VACCINE (1 - 3-dose series) 2016 CHLAMYDIA/GONORRHEA SCREENING 2017 MENINGOCOCCAL (Group B) VACCINE SHARED DECISION-MAKING (1 of 2 - Standard) 2017 HEPATITIS C SCREENING 12/05/2019 DTAP/TDAP/TD VACCINES (1 - Tdap) 2020 HEPATITIS B VACCINE (1 of 3 - 19+ 3-dose series) 2020 PNEUMOCOCCAL VACCINE (1 of 2 - PCV) 2020 PAP SMEAR 2022 DEPRESSION SCREENING 06/29/2024 COVID-19 VACCINE (2 - 2024-2 6 season) 2025 10/06/2021 INFLUENZA VACCINE (#1) 02/27/202503/20/ 8, 06/24/2005, 05/30/2004 OB-ONE HOUR GLUCOSE 03/15/2025 OB-RHOGAM INJECTION 03/29/2025 OB-GROUP B STREP SCREEN 05/17/2025 ZOSTER VACCINE (1 of 2) 12/10/2051 OB-TDAP CURRENT Completed 05/09/2025 HIB VACCINE Aged Out No longer eligi ble based on patient's age to complete this topic MENINGOCOCCAL GROUPS A/C/Y/W VACCINE Aged Out No longer eligible b ased on patient's age to complete this topic Respiratory Syncytial Virus (RSV) Vaccine Pt: or over 60 yrs (No Doses Required) Completed Procedures Procedure Name Priority Date/Time Associated Diagnosis Comments BIOPHYSICAL PROFILE W NST Routine 06/02/2025 1:29 PM CHRONIC CONDITION NURSE Maternal tobacco use in third trimester (HCC) Encounter for other screening follow-up (HCC) Maternal morbid obesity in third trimester, antepartum (HCC) 35 weeks gestation of (HCC) Poor growth affecting management of mother in first trimester, single or unspecified fetus (HCC) SONOGRAM - COMPLETE Routine 05/23/2025 1 :50 PM CHRONIC CONDITION NURSE Maternal morbid obesity in second trimester, antepartum (HCC) Maternal tobacco use in second trimester (HCC) Screening, , for malformation by ultrasound (HCC) Poor growth affecting management of mother in first trimester, single or unspecified fetus (HCC) Encounter for ultrasound (HCC) BIOPHYSICAL PROFILE W NST Routine 05/19/2025 11:49 AM CHRONIC CONDITION NURSE Maternal morbid obesity in third trimester, antepartum (HCC) Poor growth affecting management of mother in first trimester, single or unspecified fetus (HCC) Screening, , for malformation by ultrasound (HCC) BIOPHYSICAL PROFILE W NST Routine 05/05/2025 8:04 AM CHRONIC CONDITION NURSE Maternal morbid obesity in third trimester, antepartum (HCC) Poor growth affecting management of mother in first trimester, single or unspecified fetus (HCC) Screening, , for malformation by ultrasound (HCC) BIOPHYSICAL PROFILE W NST Routine 04/26/2025 2:39 PM CDT Maternal morbid obesity in third trimester, antepartum (HCC) Poor growth affecting management of mother in first trimester, single or unspecified fetus (HCC) Screening, , for malformation by ultrasound (HCC) ECHO COMPLETE CG Routine 04/13/2025 12:30 PM CDT Maternal morbid obesity in second trimester, antepartum (HCC) 29 weeks gestation of (HCC) Encounter for follow-up ultrasound of anatomy (HCC) Screening, , for malformation by ultrasound (HCC) SONOGRAM - COMPLETE Routine 04/12/2025 2 :36 PM CDT Poor growth affecting management of mother in first trimester, single or unspecified fetus (HCC) SONOGRAM - COMPLETE Routine 04/07/2025 2 :00 PM CDT Maternal morbid obesity in second trimester, antepartum (HCC) Encounter for ultrasound to assess growth (HCC) Maternal tobacco use in second trimester (HCC) 29 weeks gestation of (HCC) Encounter for follow-up ultrasound of anatomy (HCC) SONOGRAM - COMPLETE Routine 03/10/2025 1 :08 PM CDT Maternal morbid obesity in second trimester, antepartum (HCC) Encounter for ultrasound to assess growth (HCC) Maternal tobacco use in second trimester (HCC) 25 weeks gestation of (HCC) Encounter for follow-up ultrasound of anatomy (HCC) from Last 3 Months Results * Biophysical Profile w NST (06/02/2025 1:29 PM CHRONIC CONDITION NURSE) Only the most recent of4 resultswithin the time period is included. Linked Results Indication ======== Incomplete anatomy Obesity complicating , Class 3 - BMI of 40.0 or greater Smoking (tobacco) complicating Poor Growth, Small for Dates, Placental insufficiency Supervision of high risk History ====== OB History 1 Lab Tests Test Date Result NIPT Declined Maternal Assessment Physical Exam Height 178 cm, 5 ft 10 in. Weight 170 kg, 374 lb. Initial weight 140 kg, 308 lb. BMI 53.66 kg/m . Initial BMI 44.19 kg/m . Weight gain 30 kg, 66 lb Method ====== Transabdominal ultrasound examination. View: limited secondary to challenging acoustic properties ========= Soto . Number of fetuses: 1 Dating ====== Date Details Gest. age MATHIEU Stated MATHIEU 37 w + 2 d 06/21/2025 Assigned dating based on stated MATHIEU, selected on 02/03/2025 37 w + 2 d 06/21/2025 General Evaluation Cardiac activity present. FHR 138 bpm. Presentation: cephalic Placenta: Placental site: posterior Amniotic Fluid Assessment ==== Amount of AF: normal MVP 5.7 cm. NICKI 14.4 cm. Q1 5.7 cm, Q2 2.3 cm, Q3 3.1 cm, Q4 3.3 cm Biophysical Profile 2: breathing movements 2: Gross body movements 2: tone 2: Amniotic fluid volume NST: reactive 04/07 Biophysical profile score Non Stress Test NST interpretation: reactive. Test duration 30 min. Baseline FHR 130 bpm. Baseline variability: moderate. Accelerations: present. Decelerations: absent. Uterine activity: present Growth Overview Exam date GA BPD (mm) HC (mm) AC (mm) FL (mm) HL (mm) EFW (g) 02/03/2025 20w 2d 46.3 37% 173.9 26% 153.8 54% 34 56% 34.8 95% 360 58% 03/10/2025 25w 2d 65.8 82% 238.4 50% 211.2 53% 46.3 39% 43 57% 833 54% 04/07/2025 29w 2d 73.8 48% 280.3 59% 225.5 2% 58.5 72% 53.6 90% 1274 20% 04/26/2025 32w 0d 82.3 74% 296.2 32% 265.2 13% 60 18% 53.1 22% 1724 19% 05/19/2025 35w 2d 85.5 30% 317.7 27% 297.7 16% 67.5 28% 61.1 74% 2395 23% Anatomy The following structures appear normal: Abdomen Stomach. Kidneys. Bladder. Impression ========= Single, live, intrauterine at 37w2d The amniotic fluid volume is normal The biophysical profile is 10/10 Comment ======== ultrasound alone cannot detect all structural, genetic, or functional , placental, or maternal abnormalities Follow-up ======== Continue weekly testing Deliver at 39w0d to 39w6d if remains stable Coding ====== Diagnoses O99.213, E66.813: Obesity complicating , Class 3 - BMI of 40.0 or greater Z36.2: Encounter for other screening follow-up O99.333: Smoking (tobacco) complicating O36.5130: Maternal care for known or suspected placental insufficiency [facility] PACS Anatomical Region Laterality Modality Other 06/02/2025 1:29 PM CHRONIC CONDITION NURSE Adrianna Boyce MD [facility] ORDERABLES Edited Result - Final * Sonogram - Complete (05/23/2025 1:50 PM CHRONIC CONDITION NURSE) Only the most recent of4 resultswithin the time period is included. Linked Results Indication ======== Incomplete anatomy Obesity complicating , Class 3 - BMI of 40.0 or greater Smoking (tobacco) complicating Poor Growth, Small for Dates, Placental insufficiency History ====== OB History 1 Lab Tests Test Date Result NIPT Declined Maternal Assessment Physical Exam Height 178 cm, 5 ft 10 in. Weight 163 kg, 360 lb. Initial weight 140 kg, 308 lb. BMI 51.65 kg/m . Initial BMI 44.19 kg/m . Weight gain 24 kg, 52 lb Method ====== Transabdominal ultrasound. View: Sufficient ========= Soto . Number of fetuses: 1 Dating ====== Date Details Gest. age MATHIEU Stated MATHIEU 35 w + 6 d 06/21/2025 Assigned dating based on stated MATHIEU, selected on 02/03/2025 35 w + 6 d 06/21/2025 General Evaluation Cardiac activity present. FHR 132 bpm. Presentation: cephalic Placenta: Placental site: posterior Amniotic Fluid Assessment ==== Amount of AF: normal MVP 3.9 cm. NICKI 12.9 cm. Q1 3.7 cm, Q2 3.9 cm, Q3 2.9 cm, Q4 2.5 cm Biophysical Profile 2: breathing movements 2: Gross body movements 2: tone 2: Amniotic fluid volume NST: reactive 04/07 Biophysical profile score Non Stress Test NST interpretation: reactive. Baseline FHR 120 bpm. Baseline variability: moderate. Accelerations: present. Decelerations: absent. Uterine activity: present. Acoustic stimulation: no Growth Overview Exam date GA BPD (mm) HC (mm) AC (mm) FL (mm) HL (mm) EFW (g) 02/03/2025 20w 2d 46.3 37% 173.9 26% 153.8 54% 34 56% 34.8 95% 360 58% 03/10/2025 25w 2d 65.8 82% 238.4 50% 211.2 53% 46.3 39% 43 57% 833 54% 04/07/2025 29w 2d 73.8 48% 280.3 59% 225.5 2% 58.5 72% 53.6 90% 1274 20% 04/26/2025 32w 0d 82.3 74% 296.2 32% 265.2 13% 60 18% 53.1 22% 1724 19% 05/19/2025 35w 2d 85.5 30% 317.7 27% 297.7 16% 67.5 28% 61.1 74% 2395 23% Anatomy The following structures appear normal: Abdomen Stomach. Kidneys. Bladder. Impression ========= Single, live, intrauterine at 35w 6d The amniotic fluid volume is normal. The biophysical profile is 10/10. Comment ======== ultrasound alone cannot detect all structural, genetic, or functional , placental, or maternal abnormalities Follow-up ======== Continue weekly testing Coding ====== Diagnoses O99.213, E66.813: Obesity complicating , Class 3 - BMI of 40.0 or greater Z36.2: Encounter for other screening follow-up O99.333: Smoking (tobacco) complicating O36.5130: Maternal care for known or suspected placental insufficiency Procedures 46688: US Uterus Limited 14896: Biophysical Profile W NST [facility] PACS Anatomical Region Laterality Modality Other 05/23/2025 1:50 PM CHRONIC CONDITION NURSE us Reginald Mendoza MD [facility] ORDERABLES Edited Result - Final * ECHO COMPLETE CG (04/13/2025 12:30 PM CDT) MV E pk ryan 38.03 cm/s [facility] PACS MV A pk ryan 49.05 cm/s [facility] [employer] PACS Anatomical Region Laterality Modality Ultrasound 04/13/2025 12:1 0 PM CDT Narrative 04/13/2025 3:32 PM CDT Name: Sarah Wilde Patient Exam Info Gender: Female Patient Status: O/P : 2000 Admit Date: 04/13/2025 Exam Date/Time: 04/13/2025 12:10 PM Site: [facility] Current Location: CARE EStaffOrdering Provider: Ferdinand Atwood Interpreting Physician: Telma Honeycutt MD Retail Service Representative: Mallory Magallon Study Info Procedure: ECHO COMPLETE CG Indications: - Screening for cardiovascular condition Maternal Gestational Status GA by EDC: 30 wks , 1 days EDC: 06/21/2025 Type: Soto Age: 23 yrs Lie: Vertex Summary * The echocardiogram was within normal limits. * Small atrial and ventricular septal defects and persistent ductus arteriosus cannot be excluded as findings. Anatomic Relationships Left sided cardiac apex (levocardia). There is normal visceral-cardiac situs, and normal segmental cardiac anatomical relationship. Systemic Veins There is normal systemic venous return. Pulmonary Veins The visualized pulmonary veins drain normally to the left atrium. Right Atrium The right atrial size is normal. Left Atrium The left atrial size is normal. Atrial Septum Patent foramen ovale with open foramen flap. Color flow is right to left. Right Ventricle The right ventricular cavity size is normal. The right ventricular wall thickness is normal. The right ventricular systolic function is normal. RV Outflow Tract The right ventricular outflow tract is normal. Left Ventricle The left ventricular cavity size is normal. The left ventricular wall thickness is normal. The left ventricular systolic function is normal. Ventricular Septum There is no ventricular septal defect with no shunting. LV Outflow Tract The left ventricular outflow tract is normal. Tricuspid Valve The tricuspid valve is structurally normal. The tricuspid inflow pattern is normal. Tricuspid velocity is within the normal range. There is no tricuspid regurgitation. Mitral Valve The mitral valve is structurally normal. The mitral inflow pattern is normal. Mitral velocity is within the normal range. There is no mitral regurgitation. Aorta aortic arch visualized and is without obstruction by 2D, color flow and Doppler. Pulmonary Arteries The main pulmonary artery is normal, with confluent branch pulmonary arteries. Ductus Arteriosus The antegrade flow velocity and pattern in the ductal arch is normal. A normal ductus arteriosus is appreciated. Doppler Flow in the ductus venosus is normal. The umbilical vein flow pattern is normal. The umbilical artery flow pattern is normal. Hydrops Assessment No pericardial effusion. No ascites present. No pleural effusion(s). Rhythm The rhythm is normal. There is 1:1 AV conduction. Pulmonary Valve The pulmonic valve is normal-sized. The transpulmonic velocity is within normal range. There is no pulmonic regurgitation. Aortic Valve The aortic valve is normal-sized. The transaortic velocity is within normal range. There is no aortic regurgitation. Doppler Measurements (Fetus A) Atrioventricular Valves Name Value Normal Z-Score Percentile Atrioventricular Valves Doppler TV E Peak Velocity 0.2 m/s TV A Peak Velocity 0.5 m/s MV E Peak Velocity 0.4 m/s MV A Peak Velocity 0.5 m/s (Fetus A) Semilunar Valves Name Value Normal Z-Score Percentile Semilunar Valves Doppler PV Peak Velocity. 0.7 m/s AV Peak Velocity () 0.6 m/s (Fetus A) Heart Rate Name Value Normal Z-Score Percentile Heart Rate HR 138 bpm Report Signatures Finalized by Telma Honeycutt MD on 04/13/2025 03:32 PM Procedure Note Telma Honeycutt MD - 04/13/2025 Name: Sarah Wilde Patient Exam Info Gender: Female Patient Status: O/P : 2000 Admit Date: 04/13/2025 Exam Date/Time: 04/13/2025 12:10 PM Site: [facility] Current Location: CARE EStaffOrdering Provider: Ferdinand Atwood Interpreting Physician: Telma Honeycutt MD Retail Service Representative: Mallory Magallon Study Info Procedure: ECHO COMPLETE CG Indications: - Screening for cardiovascular condition Maternal Gestational Status GA by EDC: 30 wks , 1 days EDC: 06/21/2025 Type: Soto Age: 24 yrs Lie: Vertex Summary * The echocardiogram was within normal limits. * Small atrial and ventricular septal defects and persistent ductus arteriosus cannot be excluded as findings. Anatomic Relationships Left sided cardiac apex (levocardia). There is normal visceral-cardiac situs, and normal segmental cardiac anatomical relationship. Systemic Veins There is normal systemic venous return. Pulmonary Veins The visualized pulmonary veins drain normally to the left atrium. Right Atrium The right atrial size is normal. Left Atrium The left atrial size is normal. Atrial Septum Patent foramen ovale with open foramen flap. Color flow is right toleft. Right Ventricle The right ventricular cavity size is normal. The right ventricularwall thickness is normal. The right ventricular systolic function is normal. RV Outflow Tract The right ventricular outflow tract is normal. Left Ventricle The left ventricular cavity size is normal. The left ventricular wall thickness is normal. The left ventricular systolic function is normal. Ventricular Septum There is no ventricular septal defect with no shunting. LV Outflow Tract The left ventricular outflow tract is normal. Tricuspid Valve The tricuspid valve is structurally normal. The tricuspid inflow patternis normal. Tricuspid velocity is within the normal range. There is notricuspid regurgitation. Mitral Valve The mitral valve is structurally normal. The mitral inflow pattern is normal. Mitral velocity is within the normal range. There is no mitral regurgitation. Aorta aortic arch visualized and is without obstruction by 2D, colorflow and Doppler. Pulmonary Arteries The main pulmonary artery is normal, with confluent branch pulmonary arteries. Ductus Arteriosus The antegrade flow velocity and pattern in the ductal arch is normal.A normal ductus arteriosus is appreciated. Doppler Flow in the ductus venosus is normal. The umbilical vein flow patternis normal. The umbilical artery flow pattern is normal. Hydrops Assessment No pericardial effusion. No ascites present. No pleural effusion(s). Rhythm The rhythm is normal. There is 1:1 AV conduction. Pulmonary Valve The pulmonic valve is normal-sized. The transpulmonic velocity iswithin normal range. There is no pulmonic regurgitation. Aortic Valve The aortic valve is normal-sized. The transaortic velocity is withinnormal range. There is no aortic regurgitation. Doppler Measurements (Fetus A) Atrioventricular Valves Name Value Normal Z-ScorePercentile Atrioventricular Valves Doppler TV E Peak Velocity 0.2 m/s TV A Peak Velocity 0.5 m/s MV E Peak Velocity 0.4 m/s MV A Peak Velocity 0.5 m/s (Fetus A) Semilunar Valves Name Value Normal Z-ScorePercentile Semilunar Valves Doppler PV Peak Velocity. 0.7 m/s AV Peak Velocity () 0.6 m/s (Fetus A) Heart Rate Name Value Normal Z-ScorePercentile Heart Rate HR 138 bpm Report Signatures Finalized by Telma Honeycutt MD on 04/13/2025 03:32 PM Ferdinand Atwood MD ECHO CUPID Final Result from Last 3 Months Insurance [facility]
--- OUTSIDE RECORDS SUMMARY | 2025-06-07 21:25 | XMS_ITS | Clinical Summary ---
Author Organization [facility] Address [address] [place] [address] Care Team Providers Care Window Machine Operator Name Role Phone Unavailable Primary Care Provider [...] mild pain or moderate pain. 20 tablet 4 Active chlorhexidine (PERIDEX) 0.12 % solution Use 15 mL in the mouth or throat in the morning and 15 mL in the evening. Swish and spit with 15 mL twice daily after brushing (do not use for more than two consecutive weeks). 473 mL 4 Active Hospital, Clinic, or Other Facility Administered Medication Ordered Dose Route Frequency Start Date End Date Status chlorhexidine (PERIDEX) 0.12 % solution 15 mL 15 mL MT 2 times daily 03/02/2025 Active Active Problems Problem Noted Date Diagnosed Date Asthma 11/11/2023 Comments Yes Social History Tobacco Use Types Packs/Day Years [...] 09/07/2025 11:00 AM CDT Office Visit [facility] [address] [address] Arlen Sanchez, DDS [address] [place] [address] Health Maintenance Due Date Last Done Comments Dental X-Ray: Bitewings 12/03/2024 06/03/2024 Dental X-Ray: Full Mouth 08/07/2025 08/06/2022, 0212/2022 Dental Oral Exam 08/31/2025 03/02/2025, 11/2023, 08/13/2023, Additional history exists Dental Prophylaxis 08/31/2025 03/02/2025, 0 08/13/2023, 02/03/2023, Additional history exists Dental X-Ray: Panoramic 10/15/2026 10/15/2023, 08/05, 03/19/2022 Procedures Procedure Name Priority Date/Time Associated Diagnosis Comments PROPHYLAXIS - ADULT Routine 03/02/2025 9 :00 AM CDT Encounter for dental examination and cleaning without abnormal findings PERIODIC ORAL EVALUATION - ESTABLISHED PATIENT Routine 03/02/2025 9:00 AM CDT Encounter for dental examination and cleaning without abnormal findings PANORAMIC RADIOGRAPHIC IMAGE Routine 08/05/2022 2:30 PM VISUALLY IMPAIRED TEACHER INTRAORAL - COMPREHENSIVE SERIES OF RADIOGRAPHIC IMAGES Routine 08/05/2022 2:30 PM VISUALLY IMPAIRED TEACHER from Last 3 Months or Most Recently Relevant to Health Maintenance Insurance [facility]
--- OUTSIDE RECORDS SUMMARY | 2025-06-07 21:25 | XMS_ITS | Encounter Summary ---
Author Organization [facility] Health Address [address] [place] [address] Care Team Providers Care Pumper Helper Name Role Phone Unavailable Primary Care Provider Unavailabl e Prior Encounters Date Type Department Care Team Description 03/02/2025 9:00 AM CDT Office Visit [facility] [address] [place] [phone] Arlen Sanchez DDS Encounter for dental examination and cleaning without abnormal findings (Primary Dx) 08/04/2024 11:00 AM PIN CHASER Office Visit [facility] [address] [place] [phone] Neida Zhang, LINH 06/03/2024 12:45 PM PIN CHASER Office Visit [facility] [address] [place] [address] Arlen Sanchez DDS Unsatisfactory holiness of tooth, unspecified (Primary Dx); Encounter for dental examination and cleaning without abnormal findings 11/11/2023 9:00 AM CDT Office Visit [facility] [address] [place] [phone] Radha Jones DDS 11/05/2023 Orders Only [facility] [address] [place] [address] Molly Bentley DMD 10/14/2023 1:00 PM CDT Office Visit [facility] [address] [place] [address] Radha Jones, DDS 08/13/2023 2:15 PM PIN CHASER Office Visit [facility] [address] [place] [address] Molly Bentley, DMD Encounter for dental examination and cleaning without abnormal findings (Primary Dx) 02/03/2023 Travel 02/03/2023 2:00 PM CDT Office Visit [facility] [address] [place] [address] Molly Bentley, DMD 10/08/2022 Travel 10/08/2022 2:00 PM CDT Office Visit [facility] [address] [place] [address] Molly Bentley, DMD 09/03/2022 2:45 PM PIN CHASER Office Visit [facility] [address] [place] [address] Molly Bentley, DMD 08/05/2022 2:30 PM PIN CHASER Office Visit [facility] [address] [place] [address] Molly Bentley, DMD 07/08/2022 3:15 PM PIN CHASER Office Visit [facility] [address] [place] [address] Molly Bentley, DMD 04/28/2022 1:15 PM CDT Office Visit [facility] [address] [place] [address] Molly Bentley, DMD 04/09/2022 10:00 AM CDT Office Visit [facility] [address] [place] [address] Cj Monzon, DDS 03/19/2022 10:00 AM CDT Office Visit [facility] [address] [place] [address] Molly Bentley, DMD Last Filed Vital Signs [...] Description 09/07/2025 11:00 AM CDT Office Visit [facility] [address] [place] [address] Arlen Sanchez, DDS [address] [place] [address] Procedures Procedure Name Priority Date/Time Associated Diagnosis [...] ORAL HYGIENE INSTRUCTIONS Routine 2024 11:00 AM PIN CHASER TOPICAL APPLICATION OF FLUORIDE VARNISH Routine 08/04/2024 11:00 AM PIN CHASER ANNE-MARIE DECON Routine 08/04/2024 11:00 AM PIN CHASER SCALING IN PRESENCE OF GENERALIZED MODERATE OR SEVERE GINGIVAL INFLAMMATION Routine 08/04/2024 11:00 AM PIN CHASER LR ANTIBACT IRR/QUAD Routine 08/04/2024 11:00 AM PIN CHASER LL ANTIBACT IRR/QUAD Routine 08/04/2024 11:00 AM PIN CHASER UL ANTIBACT IRR/QUAD Routine 08/04/2024 11:00 AM PIN CHASER UR ANTIBACT IRR/QUAD Routine 08/04/2024 11:00 AM PIN CHASER BITEWINGS - FOUR RADIOGRAPHIC IMAGES Routine 06/03/2024 12:45 PM PIN CHASER PERIODIC ORAL EVALUATION - ESTABLISHED PATIENT Routine 06/03/2024 12:45 PM PIN CHASER Encounter for dental examination and cleaning without abnormal findings THERAPEUTIC PARENTERAL DRUGS, TWO OR MORE ADMINISTRATIONS, DIFFERENT MEDICATIONS Routine 11/11/2023 9:00 AM CDT ADMINISTRATION OF DEEP SEDATION/GENERAL ANESTHESIA EACH SUBSEQUENT 15 MINUTES INCREMENT, OR ANY PORTION THEREOF Routine 11/11/2023 9:00 AM CDT ADMINISTRATION OF DEEP SEDATION/GENERAL ANESTHESIA EACH SUBSEQUENT 15 MINUTES INCREMENT, OR ANY PORTION THEREOF Routine 11/11/2023 9:00 AM CDT ADMINISTRATION OF DEEP SEDATION/GENERAL ANESTHESIA EACH SUBSEQUENT 15 MINUTES INCREMENT, OR ANY PORTION THEREOF Routine 11/11/2023 9:00 AM CDT ADMINISTRATION OF DEEP SEDATION/GENERAL ANESTHESIA FIRST 15 MINUTES INCREMENT, OR ANY PORTION THEREOF Routine 11/11/2023 9:00 AM CDT 17 REMOVAL [...] - ADULT Routine 08/13/2023 2 :15 PM PIN CHASER Encounter for dental examination and cleaning without abnormal findings PERIODIC ORAL EVALUATION - ESTABLISHED PATIENT Routine 08/13/2023 2:15 PM PIN CHASER Encounter for dental examination and cleaning without abnormal findings BITEWINGS - FOUR RADIOGRAPHIC IMAGES Routine 08/13/2023 2:15 PM PIN CHASER PROPHYLAXIS - ADULT Routine 02/03/2023 2 :00 [...] ONE SURFACE, POSTERIOR Routine 09/03/2022 2:45 PM PIN CHASER 29 DO RESIN-BASED COMPOSITE - TWO SURFACES, POSTERIOR Routine 09/03/2022 2:45 PM PIN CHASER 20 DO RESIN-BASED COMPOSITE - TWO SURFACES, POSTERIOR Routine 09/03/2022 2:45 PM PIN CHASER 18 MO RESIN-BASED COMPOSITE - TWO SURFACES, POSTERIOR Routine 09/03/2022 2:45 PM PIN CHASER 30 MOD RESIN-BASED COMPOSITE - THREE SURFACES, POSTERIOR Routine 09/03/2022 2:45 PM PIN CHASER ORAL HYGIENE INSTRUCTIONS Routine 2022 2:30 PM PIN CHASER PROPHYLAXIS - ADULT Routine 08/05/2022 2 :30 PM PIN CHASER INTRAORAL PHOTO Routine 08/05/2022 2:30 PM PIN CHASER INTRAORAL PHOTO Routine 08/05/2022 2:30 PM PIN CHASER INTRAORAL PHOTO Routine 08/05/2022 2:30 PM PIN CHASER INTRAORAL PHOTO Routine 08/05/2022 2:30 PM PIN CHASER PANORAMIC RADIOGRAPHIC IMAGE Routine 08/05/2022 2:30 PM PIN CHASER INTRAORAL - COMPREHENSIVE SERIES OF RADIOGRAPHIC IMAGES Routine 08/05/2022 2:30 PM PIN CHASER COMPREHENSIVE ORAL EVALUATION - NEW OR ESTABLISHED PATIENT Routine 08/05/2022 2:30 PM PIN CHASER LIMITED ORAL EVALUATION - PROBLEM FOCUSED Routine 07/08/2022 3:15 PM PIN CHASER SINGLE X-RAY Routine 07/08/2022 3:15 PM PIN CHASER 19 CEMENT CROWN Routine 04/28/2022 1:15 PM [...] 19 ENDODONTIC THERAPY, MOLAR TOOTH (EXCLUDING FINAL ANABAPTISM) Routine 04/09/2022 10:00 AM CDT PANORAMIC RADIOGRAPHIC [...] and cleaning without abnormal findings 08/13/2023 Unsatisfactory holiness of tooth, unspecified 06/03/2024 Encounter for dental examination and cleaning without abnormal findings 06/03/2024 Encounter for dental examination and cleaning without abnormal findings 03/02/2025 Insurance [facility] Member Subscriber Plan / Payer (Ef fective 2014-Present) Name:Sarah Wilde Relation to Subscriber:Self Name:Sarah Wilde Payer ID:[id number] Type:Not on file Address: [address] [place] [id number]
--- OUTSIDE RECORDS SUMMARY | 2025-06-07 21:25 | XMS_ITS | Clinical Summary ---
Author Organization [facility] [address] Address [address] [place] [phone] Care Team Providers Care Gun Numberer Name Role Phone Cassandra Velázquez NP Primary Care Provider [phone] Allergies Active Allergy Reactions Criticality Noted Date [...] for anaphylaxis 1 each 4 Active vit 93-[id number]-izfse- dha 27mg iron- 800 mcg-250 mg capsule Take by mouth Active dextroamphetam ine-amphetamin e XR (ADDERALL XR) 20 mg 24 hr capsule Take 1 capsule (20 mg total) by mouth every morning 30 capsule 5 Active dextroamphetam ine-amphetamin e XR (ADDERALL XR) 20 mg 24 hr capsule Take 1 capsule (20 mg total) by mouth every morning 30 capsule 5 05/31/20 25 Discontin ued(Reord er) Active Problems Problem Noted Date Diagnosed Date Class 3 severe obesity due t o excess calories with serious comorbidity and body mass index (BMI) of 40.0 to 44.9 in adult 07/14/2024 Assessment & Plan (07/14/2024 10:37 AM EXTRUSION DIE TEMPLATE MAKER): BMI Follow-up includes: education provided. Annual physical exam 06/16/2024 Assessment & Plan (06/16/2024 3:16 PM EXTRUSION DIE TEMPLATE MAKER): -Recommended: Healthy diet. Avoiding junk food/fast food. [...] 05/19/2024 Assessment & Plan (06/16/2024 3:15 PM EXTRUSION DIE TEMPLATE MAKER): Improved. Does not feel like she needs anything further for depression. Feels like she is doing well enough with the Adderall XR. We will continue to monitor. Follow-up 6 months Assessment & Plan (05/19/2024 2:31 PM EXTRUSION DIE TEMPLATE MAKER): Positive PHQ. We are going to start by retreating the ADHD. I am going to have her follow-up in 1 month to rediscuss the depression anxiety and daily marijuana use. Shellfish allergy 05/19/2024 Assessment & Plan (05/19/2024 2:32 PM EXTRUSION DIE TEMPLATE MAKER): Anaphylactic shellfish allergy. Prescription for epinephrine pen Asthma 11/11/2023 Assessment & Plan (05/19/2024 2:32 PM EXTRUSION DIE TEMPLATE MAKER): Seasonal. Unsure how well controlled this is. [...] CDT): Assessment & Plan (06/16/2024 3:15 PM EXTRUSION DIE TEMPLATE MAKER): Improved. Continue Adderall XR 20 mg once daily. Call for refills. May follow up in 6 months Assessment & Plan (05/19/2024 2:30 PM EXTRUSION DIE TEMPLATE MAKER): Previously diagnosed. Will restart Adderall XR 20 [...] on file Legal Sex Female 11:24 PM EXTRUSION DIE TEMPLATE MAKER Gender Identity Not on file Sexual Orientation [...] CDT Respiratory Rate 18 06/16/2024 2:33 PM EXTRUSION DIE TEMPLATE MAKER Oxygen Saturation 99% 12/15/2024 1:04 PM CDT [...] B Screening Completed 09/14/2002 Insurance [facility] Care Teams Gun Numberer Relationship Specialty Start Date End Date Cassandra Velázquez NP [address] [facility] [address] [place] [address] PCP - General Family Medicine 12/12/24
[2025-06-07 21:39] LABS: Syphilis IgG/IgM Antibody Non-Reactive (Nonreactive)
[2025-06-07] MEDS: DINOPROSTONE 10 MG VAG INSERT VAGINAL (21:55)
[2025-06-07] MEDS: LACTATED RINGERS 1,000 ML 125 ML IV CONT (22:00)
[2025-06-07] MEDS: VANCOMYCIN 2,000 MG/NS 500 ML 2,000 MG/500 ML BAG 250 MG IVPB (22:01)
[2025-06-08] VITALS (165 sets, daily range): BP systolic 97–174; BP diastolic 49–106; PULSE 61–106; RESP 11–19; TEMP 36.3–36.6; O2SAT 93–100
[2025-06-08] MEDS: TERBUTALINE SULFATE 1 MG/ML VIAL 0.25 MG SUB-Q (05:25)
[2025-06-08] MEDS: VANCOMYCIN 2,000 MG/NS 500 ML 2,000 MG/500 ML BAG 250 MG IVPB ×2 (05:59→14:05)
[2025-06-08 09:07] LABS: Estimated CRCL calculation 180 ml/min; Estimated Glomerular Filt Rate > 60
[2025-06-08] MEDS: LACTATED RINGERS 1,000 ML 125 ML IV CONT (14:24)
--- NOTE | 2025-06-08 16:28 | P.PNOB_ITS ---
Pain Control Date/time seen: 06/08/25 16:28 Pelvic Exam Dilation (cm): 1 station: -3 Amniotic membrane status: Intact Contractions Monitor mode: External Contraction pattern: Irregular Status status: Category ll Assessment and Plan Assessment: induction ongoing Plan: Comments: Induction on going for preeclampsia. Patient is status post Cervidil and 1 round of vaginal misoprostol. Cervix remains unchanged. heart tones had have had several episodes of late decelerations. Patient has had on and off severe range blood pressures. Discussed that patient is remote from delivery. Stressed concern with intolerance so far without starting contractions with Pitocin. Risks, benefits, alternatives of primary discussed. Patient discussed with her partner. Both agreed to proceed with primary C- section for failure to progress and intolerance of labor.
[2025-06-08] MEDS: ACETAMINOPHEN 500 MG TABLET 1000 MG PO ×2 (16:57→22:21)
--- NOTE | 2025-06-08 16:58 | WPDANESEPPF ---
Anes - Initial Pre Proc Eval Procedure: Operation Date: 06/08/25 17:00 Proposed Procedures p Section - Reginald Mendoza MD Date/Time: 06/08/25 16:58 Surgeon: Reginald Mendoza MD Pre Op Diagnosis: intolerance to labor, arrest of dialation Pre Op Diagnosis: IOL Patient Data Age: 24 Gender: F Height: 1.78 m Weight: 159.09 kg Last Vital Signs Temp 36.6 C 06/08/25 06:05 Pulse 71 06/08/25 16:36 BP 170/105 H 06/08/25 16:30 Pulse Ox 100 06/08/25 08:14 O2 Del Method Room Air 06/07/25 20:28 Allergies Allergy/AdvReac Type Severity Reaction Status Date / Time amoxicillin Allergy Severe Hives Verified 06/07/25 20:30 shellfish derived Allergy Severe Hives Verified 06/07/25 20:30 Home Medications ?Medication ?Instructions ?Recorded ?Confirmed ?Type dextroamphetamine-amphetamine ER 20 mg PO DAILY 11/24/24 06/07/25 History 20 mg 24hr capsule,extend release (Adderall XR) vits no.126-ferrous fum 1 tablet PO DAILY 11/24/24 06/08/25 History 28 mg iron-folic acid 800 mcg tablet (Classic ) aspirin 81 mg tablet 81 mg PO DAILY 01/20/25 06/07/25 History Laboratory Tests 06/07/25 06/08/25 20:47 08:18 WBC 12.2 H K/mm3 (4.5-10.0) RBC 4.53 M/mm3 (4.2-5.4) Hgb 12.1 g/dL (12.0-15.0) Hct 38.0 % (37.0-47.0) MCV 83.9 fl (80-100) MCH 26.7 pg (26-34) MCHC 31.8 L g/dl (32-36) RDW 15.5 H % (11.5-14.5) Plt Count 406 H k/mm3 (150-375) MPV 9.4 fl (7.4-10.4) Immature Gran % (Auto) 0.6 H % (0-0.5) Neut % (Auto) 72.4 % (45.5-73.1) Lymph % (Auto) 19.9 % (18.3-44.2) Faulk % (Auto) 5.7 % (2.6-8.5) Eos % (Auto) 1.2 % (0-4.4) Baso % (Auto) 0.2 % (0.2-1.2) Lymph # (Auto) 2.44 K/mm3 (0.9-3.2) Faulk # (Auto) 0.7 H K/mm3 (0.1-0.6) Eos # (Auto) 0.2 K/mm3 (0-0.3) Baso # (Auto) 0.0 K/mm3 (0.0-0.1) Abs Immat Gran (auto) 0.07 H K/mm3 (0.00-0.031) Absolute Neuts (auto) 8.9 H K/mm3 (1.3-6.7) Absolute Nucleated RBC 0.000 K/mm3 (0.0-0.012) Nucleated RBC % 0.0 % (0.0-0.2) Sodium 131 L mmol/L (137-145) Potassium 4.0 mmol/L (3.4-5.0) Chloride 107 mmol/L (98-107) Carbon Dioxide 20 L mmol/L (22-30) Anion Gap 4 mmol/L (4-12) BUN 9 mg/dL (7-17) Creatinine 0.67 L mg/dL 0.69 L mg/dL (0.7-1.0) (0.7-1.0) Estim Creat Clear Calc Not Reportable 180 ml/min Estimated GFR > 60 > 60 (59 - ) (59 - ) Glucose 97 mg/dL (65-110) Uric Acid 5.0 mg/dL (2.5-7.5) Calcium 9.3 mg/dL (8.4-10.2) Total Bilirubin 0.3 mg/dL (0.2-1.3) AST 27 U/L (14-36) ALT 18 U/L (6-35) Alkaline Phosphatase 123 U/L (38-126) Total Protein 6.8 g/dL (6.3-8.2) Albumin 3.4 L g/dL (3.5-5.1) Urine Color Yellow (Yellow) Urine Appearance Clear (Clear) Urine pH 6.5 (5.0-9.0) Ur Specific Vantage 1.027 (1.001-1.035) Urine Protein 2+ H mg/dL (Negative) Urine Glucose (UA) Negative mg/dL (Negative) Urine Ketones Trace H mg/dL (Negative) Ur Blood (Man) Negative (Negative) Urine Nitrate Negative (Negative) Urine Bilirubin Negative (Negative) Urine Urobilinogen 1.0 mg/dL (<2.0) Add Ur Microanalysis Reviewed Leukocyte Esterase Rfl Negative ROCIO/UL (Negative) Urine RBC 0-2 /hpf (0-2) Urine WBC 0-5 /hpf (0-3) Ur Squamous Epith Cells None seen /hpf (Few) Urine Bacteria None seen /hpf Urine Casts 0-2 Urine Yeast (Budding) Present H /hpf (None) U Random Total Protein 116 mg/dL Urine Creatinine 240.8 mg/dL Protein/Creat Ratio 2 0.48 H mg/mg (0-0.20) Syphilis IgG/IgM Ab Non-reactive (Nonreactive) Blood Type O Positive Antibody Screen Negative Patient hx anesthesia problems: none Family hx anesthesia problems: none Results Review: All pre-operative results and documents have been reviewed as part of the pre-operative evaluation. [facility] Past Medical History Medical History Nexplanon removal Asthma Surgical History Surgical History No pertinent past surgical history Family History Family History Grandparent Breast cancer mother and father's side. mat grandmother, father just diagnosed with stage 3. Social History Social History Smoking status: Former smoker Tobacco type: e-cigarettes/vaping Second hand tobacco smoke exposure: No Smoking end date: 08/27/24 Alcohol intake: former Substance use: former Substance use type: marijuana Lack of Transportation: No Lack of Food: Never True Current Housing: I Have Housing Concerned About Future Housing: No Difficulty Paying Gas/Electric Bills: No Difficulty Paying for Meds: No Currently Unemployed: No Education: High School Diploma/GED Difficulty w/ Childcare or Family Care: No Living arrangements: with family Additional living arrangements comments: single Occupation/Education: occupation 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 Gender identity (if verbalized by the patient): Female Sexual Orientation (if Verbalized by the Patient): Bisexual Spiritual care concerns: No Anes - Eval Final PreProcedure Day of Procedure 06/08/25 16:58 Heart: regular rate and rhythm Lungs: clear to auscultation and normal air movement Airway: Mallampati scale class II Neurological: alert and oriented Last oral intake: 2 hours ASA classification: III Emergent: yes Anesthetic plan: proceed Anesthesia type and monitoring: regional other (CSE) and standard monitoring Results Review: All pre-operative results and documents have been reviewed as part of the pre-operative evaluation. Informed Consent: The patient's anesthetic plan and its attendant risks and benefits were discussed with the patient/family/POA. Questions were solicited and answers provided to the satisfaction of the patient/family/POA.
[2025-06-08] MEDS: FAMOTIDINE 20 MG/2 ML VIAL IV PUSH (17:00)
[2025-06-08] MEDS: ceFAZolin 3 GM/D5W 100 ML 100 ML IVPB (17:00)
[2025-06-08] MEDS: ONDANSETRON INJ 4 MG/2 ML VIAL IV PUSH (17:00)
[2025-06-08] MEDS: AZITHROMYCIN IV 500 MG in SODIUM CHLORIDE 0.9% IV 250 ML IVPB (17:00)
--- NOTE | 2025-06-08 18:28 | W.PM.OBCSD ---
OB - Delivery Note Procedure Delivery date: 06/08/25 Pre-op diagnosis: Arrest of Dilation, Failed Induction of Labor and Preeclampsia w severe features Post-op Diagnosis: Same Induction method: Per Cervidil Protocol Delivery monitor: External FHT and External Uterine Prior to decision for section, ACOG/SMFM labor guidelines were considered and discussed with the patient and staff. Decision made to proceed with the section.: Yes Procedure Performed: Primary Primary branch: low cervical, transverse Surgeon: Reginald Mendoza MD Anesthesia type: Epidural Description of Procedure/Findings: The patient was taken to the operating room. A combined spinal epidural anesthesic was administered and found to be adequate at a t-10 level. The patient was placed in a supine position with a slight left lateral tilt. A meredith catheter was placed with return of clear urine. A Bovie grounding pad was placed. Surgical prep was performed and surgical drapes were placed. A surgical time out was performed. A Pfannenstiel skin incision was then made with the scalpel and carried through to the underlying layer of fascia. The fascia was then incised in the midline and the incision was extended laterally with the Pompa scissors. The superior aspect of the fascia was then grasped with the Andrea clamps, elevated, and the underlying rectus muscles dissected off bluntly and sharply. Attention was then turned to the inferior aspect of this incision which, in a similar fashion, was grasped, tented up with the Andrea clamps, and the rectus muscles dissected off both bluntly and sharply. The rectus muscles were then in the midline. The peritoneum was identified and entered bluntly. The peritoneal incision was then extended superiorly and inferiorly with good visualization of the bladder. The vesico-uterine serosa was identified and dissected to create a bladder flap. A ring retractor was placed for better visualization. The uterus was inspected for rotation. A low-transverse uterine incision was made sharply with the scalpel and entry was made into the uterine cavity. An amniotomy was made and copious amounts of clear fluid were noted on return. The uterine incision was extended laterally bluntly. Due to maternal body habitus, fundal pressure was found to be inadequate to deliver the fetus through the hysterototy. Tay forceps were applied to the head and guided through the hysterotomy with fundal pressure. The infant was noted to have little tone on delivery. The umbilical cord was clamped twice and cut. The infant was handed off to the waiting staff. A second segment of umbilical cord was clamped and cut for cord blood gasses. Cord blood was collected for determination of the blood type and for direct Hudson. The placenta was delivered spontaneously without difficulty. The placenta appeared grossly normal and complete. The uterus was exteriorized and cleared of all clots and debris. The uterine incision was repaired using 0-monocryl suture in a running fashion. A second layer of 0 Monocryl suture was used in an imbricating fashion to obtain excellent hemostasis and uterine strength. The uterine closure was inspected for hemostasis. The posterior aspect of the uterus and the broad ligaments were inspected and the posterior cul-de-sac cleared of fluid and blood clots. The right uterine vein was noted to be bleeding. A right sided O'leary stitch was thrown to obtain hemostasis. The uterine closure was again inspected and found to be hemostatic. The uterus was returned to the abdominal cavity. The pericolic gutters were inspected and were cleared of all blood clots and debris. The uterine closure was then re inspected to ensure hemostasis as were all subfascial tissues. The peritoneum was closed using 3-0 vicryl in a running fashion. The fascia was reapproximated with 0-vicryl in a running fashion. The subcutaneous tissue was irrigated and hemostasis achieved with electrocautery. It was reapproximated with 3-0 vicryl in a running fashion. The skin was closed with anabelle. A sterile YVONNE dressing was applied. The patient tolerated the procedure well. Sponge, lap and needle counts were correct times three. The patient was taken to recovery in stable condition and without anticipated complications. Specimen: Yes (placenta) Estimated Blood Loss: 700 Drains: No Packing: No Pathology: Yes (placenta) Complications: No immediate complications Condition: Stable Disposition: Floor [place] Baby Date of : 06/08/25 Gestational Age by Date: 38 Infant gender: Male Weight (pounds): 5 Weight (ounces): 13 presentation: vertex Placenta delivery description: Manual Removal Cord Vessel Description: 3 Vessels score one minute: 2 score five minutes: 8
--- NOTE | 2025-06-08 19:08 | S_PTH ---
PATIENT: Sarah Wilde LOC: [facility] U#:[id number] AGE/SX: 24/F ROOM: 284 RE06/07/[address]: Preston Teresa MD : 2000 BED: 00 DIS: 06/10/2025 SPEC #: [id number] RECD: 06/09/25 07:38 STATUS: NSESA RELinn #: [id number] LAXMI: 06/08/25 19:[address]: Reginald Mendoza DEPT: [facility] Surgical RECD BY: Tiffany Adrian ENTERED: 06/09/25 07:39 SP TYPE: Surgical OTHR DR: Cassandra Velázquez, LINEN SUPERVISOR Tissues: A - Placenta Procedures: Hematoxylin and Eosin Stain Gross and Microscopic Level 5
[2025-06-08] MEDS: OXYTOCIN 30 UNITS/NS 500 ML 30 UNITS/500 ML BAG 125 UNITS IV CONT (21:05)
[2025-06-08] MEDS: KETOROLAC 15 MG/ML VIAL (*BKC) IV PUSH (22:21)
[2025-06-08] MEDS: LACTATED RINGERS 1,000 ML 75 ML IV CONT (22:58)
[2025-06-08] MEDS: MAGNESIUM SULF 4 GM/WATER100ML 4 GM/100 ML BAG IVPB (22:58)
[2025-06-09] VITALS (8 sets, daily range): BP systolic 138–159; BP diastolic 75–91; PULSE 74–88; RESP 16–18; TEMP 36.4–37; O2SAT 94–100
[2025-06-09] MEDS: MAGNESIUM SULF 20GM/WATER500ML 500 ML 50 MG IV CONT ×2 (00:19→10:22)
--- NOTE | 2025-06-09 03:15 | OBPPTRN ---
Patient transferred to post room # via stretcher at 21:27. Support person present. Oriented to unit, room, information board, rooming in, admission packet and security measures. Patient verbalizes understanding.
[2025-06-09 04:50] LABS: Hematocrit 35.3 % (37.0-47.0); Hemoglobin 11.1 g/dL (12.0-15.0); Immature Granulocyte Percent A 0.6 % (0-0.5); Lymphocytes Absolute Auto 0.85 K/mm3 (0.9-3.2); Mean Corpuscular HGB Conc 31.4 g/dl (32-36); Mean Corpuscular Hemoglobin 26.7 pg (26-34); Mean Corpuscular Volume 85.1 fl (80-100); Nucleated Red Blood Cells Absolute Auto 0.000 K/mm3 (0.0-0.012); Nucleated Red Blood Cells Perc 0.0 % (0.0-0.2); Platelet Count Result 363 k/mm3 (150-375); Red Blood Count 4.15 M/mm3 (4.2-5.4); White Blood Count 17.9 K/mm3 (4.5-10.0)
[2025-06-09] MEDS: ACETAMINOPHEN 500 MG TABLET 1000 MG PO ×4 (05:04→23:54)
[2025-06-09] MEDS: KETOROLAC 15 MG/ML VIAL (*BKC) IV PUSH ×2 (05:05→12:18)
[2025-06-09] MEDS: SIMETHICONE 80 MG TAB.CHEW PO ×3 (07:29→17:56)
[2025-06-09] MEDS: MULTIVIT/MIN/PREN/FOL AC/IRON TABLET 1 TAB PO (07:29)
[2025-06-09] MEDS: DOCUSATE SODIUM 100 MG CAPSULE PO ×2 (07:30→17:56)
--- NOTE | 2025-06-09 10:38 | WPDANLDPN2 ---
Anes-Prog Note L&D Date/Time: 06/09/25 10:38 Comfortable throughout: labor, delivery and section Neuraxial method: epidural Epidural/Spinal procedure site: clean & non-tender Neuro status: Neuro function grossly intact. Cardiovascular status: normal Respiratory status: normal Airway patency: baseline Mental status: baseline Post-Op hydration status: normal Vital Signs: Last Vital Signs Temp 36.4 C L 06/09/25 08:40 Pulse 79 06/09/25 08:40 Resp 18 06/09/25 08:40 BP 138/91 H 06/09/25 08:40 Pulse Ox 95 06/09/25 08:40 O2 Del Method Room Air 06/08/25 20:35 Pain score (VAS): 2 I/O: Intake & Output 06/08/25 06/09/25 06/09/25 23:59 07:59 15:59 Intake Total 500 Output Total 800 425 Balance -800 -425 500 Post-procedural complaints: none Patient feedback: Patient satisfied with anesthetic care.
--- NOTE | 2025-06-09 10:38 | WPDANLDNPN2 ---
Anes-Prog Note L&D-Neuraxial Date/Time: 06/09/25 10:38 Neuraxial medications: epidural PF morphine Opiod-related complaints: none Patient feedback: Patient satisfied with post-operative pain management.
[2025-06-09] MEDS: LACTATED RINGERS 1,000 ML 75 ML IV CONT (12:21)
--- NOTE | 2025-06-09 13:24 | PM.OBPNVD ---
OB - PN: Subj Subjective Date/time seen: 06/09/25 13:24 S: Diet tolerated well. Pain well controlled. Minimal ambulation, currently on magnesium which will be stopped later this afternoon. O: VSS afebrile with pressure 140 over 80s to 90s Abdomen positive bowel sounds soft. Incision currently covered with bandage Labs: Noted A: Postop day 1 status post primary P: Stop magnesium later today. Initiate labetalol therapy. Note circumcision unabl to be performed today due to poor feeding on baby's part. OB - PN: Obj Data Labs 06/09/25 04:39 06/08/25 08:18 Labs: Laboratory Results - last 24 hr 06/09/25 04:39 WBC 17.9 H RBC 4.15 L Hgb 11.1 L Hct 35.3 L MCV 85.1 MCH 26.7 MCHC 31.4 L RDW 15.6 H Plt Count 363 MPV 9.1 Immature Gran % (Auto) 0.6 H Neut % (Auto) 91.6 H Lymph % (Auto) 4.8 L [place] % (Auto) 2.9 Eos % (Auto) 0.0 Baso % (Auto) 0.1 L Lymph # (Auto) 0.85 L [place] # (Auto) 0.5 Eos # (Auto) 0.0 Baso # (Auto) 0.0 Abs Immat Gran (auto) 0.10 H Absolute Neuts (auto) 16.4 H Absolute Nucleated RBC 0.000 Nucleated RBC % 0.0 OB - PN A/P Time Spent With Patient Time: Total time spent is greater than 50% in coordination of care (as documented) at patient's floor/unit and/or counseling patient:
--- NOTE | 2025-06-09 15:58 | PC.NURSE ---
[id number] Consulted with patient to assess needs related to . Discussed with mother her successes, concerns and any questions she has. We reviewed working with the , supporting breast, protecting her nipples with an optimal deep latch, good positioning, and good hand washing. Encouraged understanding the benefits of skin to skin, responding to feeding cues, frequencies of feeding 8-12 times in 24 hours (approximately 2-3 hours), duration of feedings, milk production, intake/output feeding sheet and signs of adequate intake encouraging swallowing at the breast. Reviewed positioning and alignment, supporting breast, off-centered (asymmetrical latch) and leading with the chin with big, open, wide gape. Infant attempted to latch to both the [left and right] breast in [football] position. Education given to the mother of how to visualize the suckling (with good rocking jaw motion) swallows (dropping of the lower jaw) and how to listen for drinking at the breast (the ka sound). was sleepy and reluctant, glucose check prior to feed attempt was WNL, this RN bottle fed while mother used the breast pump, she is going to save the pumped colostrum for the next feeding. Nipple care reviewed with optimal latch, good positioning and using clean hands when touching her breast. Resources used to facilitate learning were used from the [visual handouts/ tool/mom and baby guide]. Mother voiced understanding of the education shared, to call for assistance if the infant does not latch or if there is discomfort with . Reported to the Primary RN.
--- NOTE | 2025-06-09 16:31 | PM.OBPNVD ---
OB - PN: Subj Subjective Date/time seen: 06/10/25 0945 Interval history: She states minimal lochia, she is ambulating without problems, denies leg pain. Denies headache, scotomata or RUQ pain. Patient comments: pain well controlled and tolerating diet OB - PN: Obj Data Labs 06/09/25 04:39 06/08/25 08:18 Labs: Laboratory Results - last 24 hr 06/09/25 04:39 WBC 17.9 H RBC 4.15 L Hgb 11.1 L Hct 35.3 L MCV 85.1 MCH 26.7 MCHC 31.4 L RDW 15.6 H Plt Count 363 MPV 9.1 Immature Gran % (Auto) 0.6 H Neut % (Auto) 91.6 H Lymph % (Auto) 4.8 L [place] % (Auto) 2.9 Eos % (Auto) 0.0 Baso % (Auto) 0.1 L Lymph # (Auto) 0.85 L [place] # (Auto) 0.5 Eos # (Auto) 0.0 Baso # (Auto) 0.0 Abs Immat Gran (auto) 0.10 H Absolute Neuts (auto) 16.4 H Absolute Nucleated RBC 0.000 Nucleated RBC % 0.0 OB - PN A/P Assessment and Plan (1) Delivery by section: Status: Acute Assessment and Plan: POD2. Doing well. Request discharge home today. Time Spent With Patient Time: Total time spent is greater than 50% in coordination of care (as documented) at patient's floor/unit and/or counseling patient: Exam Const: General: comfortable and no acute distress Resp: Effort & Inspection: normal respiratory effort GI: Other: dressing intact clean dry Extrem: General: no calf tenderness Psych: Mental Status: mental status grossly normal Affect: normal affect
--- NOTE | 2025-06-09 16:32 | PM.OBDSVD ---
DS: Admitting Diagnosis Discharge Date 06/10/25 Admitting Diagnosis Pre- eclampsia DS: Discharge Diagnosis Discharge Diagnosis (1) Arrest of dilation, delivered, current hospitalization: Code(s): O62.1 - Secondary uterine inertia Status: Acute (2) Pre-eclampsia: Code(s): O14.90 - Unspecified pre-eclampsia, unspecified trimester Status: Acute (3) Delivery by section: Status: Acute OB - DS: Summary Hospital Course Hospital Course: She was admitted for [facility] for pre-eclampsia. Labor significant for arrest of dilation for which she had an uncomplicated section. She did well post op. Blood pressures stable on medication. She was ambulating without problems, had adequate pain control, minimal lochia. No PIH symptoms . She requested discharge to home on day 2. OB Procedures : Ultrasound OB Procedures Intrapartum: Spontaneous Vag Delivery OB Procedures: : None Peripartum Data Infant Delivery Method: Section Procedures: Procedures Operation Date: 06/08/25 17:00 Actual Procedure Side Surgeon p Section Reginald Mendoza MD complications: none Status at Discharge Functional status at discharge: independent ambulation Time Spent with Patient Time attestation: Total time spent providing and/or coordinating discharge services: Exam Const: General: cooperative Orientation/consciousness: oriented to person, oriented to place and oriented to time HENMT: Face/Nose/Sinus: Normal external nose present Eyes: General: appearance normal, both eyes and all related structures Resp: Effort & Inspection: normal respiratory effort GI: Inspection: normal to inspection Other: dressing intact Skin: General skin exam: normal color Neuro: General: oriented to person, oriented to place and oriented to time Extrem: General: normal to inspection and no calf tenderness Psych: Appearance: grossly normal Mental Status: mental status grossly normal DS: Data Data Completed and Pending Pending studies at discharge: Pending at discharge 06/08/25 19:08 Surgical [PTH] Routine Labs on day of discharge: Labs from last 24 hours 06/09/25 04:39 WBC 17.9 H RBC 4.15 L Hgb 11.1 L Hct 35.3 L MCV 85.1 MCH 26.7 MCHC 31.4 L RDW 15.6 H Plt Count 363 MPV 9.1 Immature Gran % (Auto) 0.6 H Neut % (Auto) 91.6 H Lymph % (Auto) 4.8 L [place] % (Auto) 2.9 Eos % (Auto) 0.0 Baso % (Auto) 0.1 L Lymph # (Auto) 0.85 L [place] # (Auto) 0.5 Eos # (Auto) 0.0 Baso # (Auto) 0.0 Abs Immat Gran (auto) 0.10 H Absolute Neuts (auto) 16.4 H Absolute Nucleated RBC 0.000 Nucleated RBC % 0.0 Discharge Plan Discharge Attending physician on discharge: Reginald Mendoza Consulting providers: Preston Teresa Discharging Clinician: Preston Teresa Anticipated Discharge Date/Time: 06/10/25 10:16 Patient Disposition: Home Activity: may shower, no straining and no driving Diet: regular Patient Instructions: Antibiotic Form Patient Language: Swazi Stand Alone Forms: General Discharge Information Follow-up/Referrals: Reginald Mendoza MD [Physician, [employer]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] - Call for Appointment Discharge Medications: New oxycodone 5 mg Tablet 5 mg PO Q4H PRN (Reason: Pain Rated 4-6) Qty: 20 0RF labetalol 100 mg Tablet 200 mg PO Q12HR Qty: 30 0RF ibuprofen 600 mg Tablet 600 mg PO Q6HR PRN (Reason: Pain) Qty: 30 0RF Discontinued aspirin 81 mg tablet 81 mg PO DAILY No Action Classic 28 mg iron- 800 mcg tablet 1 tablet PO DAILY dextroamphetamine-amphetamine [Adderall XR] 20 mg capsule,extended release 24hr 20 mg PO DAILY Date of admission: 06/07/25 19:30 Primary Care Provider: Brayden,Cassandra Giron Admitting Provider: Reginald Mendoza Attending physician on admission: Reginald Mendoza Condition: Stable
[2025-06-09] MEDS: IBUPROFEN 600 MG TABLET PO ×2 (17:56→23:54)
[2025-06-09] MEDS: LABETALOL HCL 100 MG TABLET 200 MG PO (21:17)
[2025-06-10 03:23] VITALS: BP 129/71; PULSE 71; RESP 20; TEMP 36.2; O2SAT 99
[2025-06-10] MEDS: IBUPROFEN 600 MG TABLET PO ×2 (06:06→12:15)
[2025-06-10] MEDS: ACETAMINOPHEN 500 MG TABLET 1000 MG PO ×2 (06:06→12:15)
[2025-06-10 08:25] VITALS: BP 117/66; PULSE 69; RESP 16; TEMP 36.2; O2SAT 100
[2025-06-10] MEDS: MULTIVIT/MIN/PREN/FOL AC/IRON TABLET 1 TAB PO (08:25)
[2025-06-10] MEDS: LABETALOL HCL 100 MG TABLET 200 MG PO (08:25)
[2025-06-10] MEDS: SIMETHICONE 80 MG TAB.CHEW PO ×2 (08:25→12:15)
[2025-06-10] MEDS: DOCUSATE SODIUM 100 MG CAPSULE PO (08:25)
[2025-06-10] MEDS: INFLUENZA VACCINE 45 MCG/0.5 ML SYRINGE IM (15:27)
[2025-06-12 09:24] VITALS: BP 148/86; PULSE 92; RESP 18; TEMP 36.6; O2SAT 100
--- NOTE | 2025-06-13 09:41 | PM.IMHP2 ---
H&P: HPI History of Present Illness Date/Time: 06/08/25 09:41 Chief Complaint: Intrauterine at term Narrative: 24-year-old female who presents for induction of labor due to preeclampsia. Review of Systems Cardiovascular: Cardiovascular: Denies chest pain, Denies leg edema, Denies palpitations, Denies dyspnea and Denies dyspnea on exertion Respiratory: Respiratory: Denies cough, Denies dyspnea and Denies dyspnea on exertion Gastrointestinal: Gastrointestinal: Denies abdominal pain, Denies constipation, Denies diarrhea, Denies nausea and Denies vomiting Genitourinary: Genitourinary: Denies hematuria, Denies urinary frequency, Denies dysuria, Denies pelvic pain, Denies urinary incontinence and Denies vaginal discharge Neurologic: Reports system reviewed and no additional complaints, except as documented Psychiatric: Psychiatric: Reports no additional psychiatric complaints Endocrine: Endocrine: Denies palpitations PMFSH Past Medical History Medical History Nexplanon removal Asthma Surgical History Surgical History No pertinent past surgical history Family History Family History Grandparent Breast cancer mother and father's side. mat grandmother, father just diagnosed with stage 3. Social History Social History Smoking status: Former smoker Tobacco type: e-cigarettes/vaping Second hand tobacco smoke exposure: No Smoking end date: 08/27/24 Alcohol intake: former Substance use: former Substance use type: marijuana Lack of Transportation: No Lack of Food: Never True Current Housing: I Have Housing Concerned About Future Housing: No Difficulty Paying Gas/Electric Bills: No Difficulty Paying for Meds: No Currently Unemployed: No Education: High School Diploma/GED Difficulty w/ Childcare or Family Care: No Living arrangements: with family Additional living arrangements comments: single Occupation/Education: occupation 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 Gender identity (if verbalized by the patient): Female Sexual Orientation (if Verbalized by the Patient): Bisexual Spiritual care concerns: No Meds Home Medications and Allergies Home Medications ?Medication ?Instructions ?Recorded ?Confirmed ?Type dextroamphetamine-amphetamine ER 20 mg PO DAILY 11/24/24 06/07/25 History 20 mg 24hr capsule,extend release (Adderall XR) vits no.126-ferrous fum 1 tablet PO DAILY 11/24/24 06/08/25 History 28 mg iron-folic acid 800 mcg tablet (Classic ) ibuprofen 600 mg tablet 600 mg PO Q6HR PRN Pain #30 tabs 06/10/25 Rx labetalol 100 mg tablet 200 mg (2 x 100 mg) PO Q12HR #30 06/10/25 Rx tabs oxycodone 5 mg tablet 5 mg PO Q4H PRN Pain Rated 4-6 #20 06/10/25 Rx tabs Allergies Allergy/AdvReac Type Severity Reaction Status Date / Time amoxicillin Allergy Severe Hives Verified 06/07/25 20:30 shellfish derived Allergy Severe Hives Verified 06/07/25 20:30 Exam Const: General: no acute distress Eyes: EOM: EOMs intact bilaterally Neck: Neck: supple Thyroid: thyroid normal Chest: Breast/axilla inspection: normal inspection of the breasts Breast/axilla palpation: normal palpation of the breasts, normal palpation of the axillae and no axillary lymphadenopathy Resp: Effort & Inspection: normal respiratory effort Auscultation: clear to auscultation bilaterally Cardio: Rate: regular rate Rhythm: regular rhythm GI: Inspection: non-distended and other (Gravid) GI Palp: Yes Soft to palpation, No Tenderness to palpation present (GI) and No Guarding due to palpation present (GI) Auscultation: normal bowel sounds : Speculum Exam - Vagina: No vaginal bleeding OB/external & speculum: external exam normal; No vaginal bleeding Skin: General skin exam: normal color and no rashes or lesions noted Neuro: Cognition (Neuro): normal cognition Speech: normal speech Extrem: General: normal to inspection Psych: Mental Status: mental status grossly normal Affect: normal affect Assessment and Plan Assessment and plan (1) Supervision of high-risk : Code(s): O09.90 - Supervision of high risk , unspecified, unspecified trimester Status: Acute (2) Pre-eclampsia: Code(s): O14.90 - Unspecified pre-eclampsia, unspecified trimester Status: Acute (3) Obesity: Code(s): E66.9 - Obesity, unspecified Status: Acute
== END 2025-06-10 15:54 | disposition home or self-care (01) | DRG 788 ==
LOC: ANHOB2 06-10 10:21 → ANHLDR 06-13 09:52 → ANHOB2 06-13 09:52
PROVIDERS: Admitting Provider Student in an Organized Health Care Education/Training Program; PCP Nurse Practitioner Family; Visit Provider Obstetrics & Gynecology
PROC: 10D00Z1 Extraction of Products of Conception, Low, Open Approach (ICD-10-PCS; CPT 59514; principal; 2025-06-08 17:00)
DX: O62.1 Secondary uterine inertia (principal); O14.14 Severe pre-eclampsia complicating childbirth; O99.214 Obesity complicating childbirth; O13.4 Gestational [pregnancy-induced] hypertension without significant proteinuria, complicating childbirth; O99.824 Streptococcus B carrier state complicating childbirth; Z3A.38 38 weeks gestation of pregnancy; Z37.0 Single live birth; Z87.891 Personal history of nicotine dependence; Z23 Encounter for immunization
CPT/HCPCS: 36415; 80053; 81001; 82565; 82570; 84156; 84550; 85025; 86593; 86850; 86900; 86901; 88307; 90471; 90656; A9270; G0008; J0456; J0690; J1100; J1885; J2003; J2274; J2371; J2405; J2590; J3010; J3105; J3373; J3475; J7050; J7120